=== PATIENT | female | born 2000 | race African-American/Black ===

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

== ENCOUNTER 2018-03-08 11:31 | Emergency (ER) | payer OTHER ==
[2018-03-08 12:44] LABS: KETONE, URINE AUTO RFX NEGATIVE (NEGATIVE); NITRITE, URINE AUTO RFX NEGATIVE (NEGATIVE); RBC, URINE AUTO RFX 2 /HPF (0-3); SPECIFIC GRAVITY UR AUTO RFX 1.013 (1.002-1.035); SQUAM EPITHELIAL CELL UR AURFX 1 /HPF (0-6); WBC, URINE AUTO RFX 2 /HPF (0-3)
[2018-03-08 12:48] LABS: CONTROL LINE UCG INT CTR LINE PRESENT; LEUKOCYTE ESTERASE UR AUTO RFX 1+ (NEGATIVE); URINE PREG TEST NEGATIVE (NEGATIVE)
[2018-03-08] MEDS: ONDANSETRON 4MG/2ML VIAL (J2405) IV (15:44)
[2018-03-08] MEDS: KETOROLAC 30 MG/ML VIAL (J1885) IV (15:44)
[2018-03-08 15:50] LABS: BASO % 0.5 % (0.0-1.0); EOS # 0.2 10^3/uL (0.0-0.50); HEMATOCRIT 43.8 % (36.0-47.0); IMMATURE GRANULOCYTE % 0.4 % (0-3.0); LYMPH # 2.4 10^3/uL (1.5-6.5); LYMPH % 27.8 % (24.0-44.0); MEAN CORPUSCULAR HEMOGLOBIN 30.3 pg (27.0-33.0); MEAN CORPUSCULAR HGB CONC 34.2 g/dl (32.0-36.5); MEAN CORPUSCULAR VOLUME 88.5 fl (80.0-96.0); MONO # 0.7 10^3/uL (0.0-0.8); MONO % 8.3 % (0.0-5.0); NEUTROPHILS # 5.2 10^3/uL (1.8-7.7); PLATELET COUNT, AUTOMATED 316 10^3/uL (150-450); RED BLOOD COUNT 4.95 10^6/uL (4.00-5.40); RED CELL DISTRIBUTION WIDTH 13.1 % (11.5-14.5); WHITE BLOOD COUNT 8.4 10^3/uL (4.0-10.0)
[2018-03-08 16:22] LABS: ALBUMIN 4.2 GM/DL (3.2-5.2); ALBUMIN/GLOBULIN RATIO 0.95 (1.00-1.93); ALKALINE PHOSPHATASE 91 U/L (45-117); ALT/SGPT 19 U/L (12-78); ANION GAP 9 MEQ/L (8-16); AST/SGOT 14 U/L (7-37); BILIRUBIN,TOTAL 0.6 MG/DL (0.2-1.0); BLOOD UREA NITROGEN 9 MG/DL (7-18); C REACTIVE PROTEIN QUANTITATIV 0.52 MG/DL (0.00-0.30); CALCIUM LEVEL 9.9 MG/DL (8.5-10.1); CARBON DIOXIDE LEVEL 26 MEQ/L (21-32); CHLORIDE LEVEL 104 MEQ/L (98-107); CREATININE FOR GFR 0.86 MG/DL (0.55-1.30); GLUCOSE, FASTING 77 MG/DL (70-100); POTASSIUM SERUM 3.9 MEQ/L (3.5-5.1); SODIUM LEVEL 139 MEQ/L (136-145); TOTAL PROTEIN 8.6 GM/DL (6.4-8.2)
== END 2018-03-08 17:42 | disposition home or self-care (01) ==
LOC: M ED 11:31
DX: R10.9 Unspecified abdominal pain (principal); Z87.42 Personal history of other diseases of the female genital tract; M19.90 Unspecified osteoarthritis, unspecified site; Z88.7 Allergy status to serum and vaccine
CPT/HCPCS: J2405

== ENCOUNTER → 2018-06-30 | Outpatient (CLI) | payer OTHER ==
[~2018-06-30] MED LIST changes: +KETO10TAB PO; +NAPR-50 PO; +VITA200016 PO; +ZOFR4TAB14 PO
--- NOTE | 2018-06-30 18:16 | REP ---
Clinical: Right knee pain. Technique: AP, lateral, bilateral oblique and sunrise views. Findings: The osseous structures and joint spaces are intact and normal. There is no evidence for acute fracture or dislocation. No joint effusion is appreciated. Surrounding soft tissues are unremarkable. No subcutaneous emphysema or radiodense foreign body. Impression: Normal examination. No acute fracture or dislocation. Electronically Signed by Rodney Kelley MD 06/30/2018 06:08 P
== END ==
LOC: M WUC 17:27
PROVIDERS: ATTEND Physician Assistant
DX: M22.2X1 Patellofemoral disorders, right knee (principal)

== ENCOUNTER → 2018-07-27 | Outpatient (CLI) | payer OTHER ==
[2018-07-27 10:47] LABS: BASO % 0.6 % (0.0-1.0); EOS # 0.1 10^3/uL (0.0-0.50); EOS % 1.8 % (0.0-3.0); HEMATOCRIT 41.6 % (36.0-47.0); HEMOGLOBIN 14.4 g/dl (12.0-15.5); LYMPH # 1.6 10^3/uL (1.5-6.5); LYMPH % 24.4 % (24.0-44.0); MEAN CORPUSCULAR HEMOGLOBIN 30.4 pg (27.0-33.0); MEAN CORPUSCULAR HGB CONC 34.6 g/dl (32.0-36.5); MEAN CORPUSCULAR VOLUME 87.8 fl (80.0-96.0); MONO # 0.8 10^3/uL (0.0-0.8); MONO % 11.4 % (0.0-5.0); NEUTROPHILS # 4.1 10^3/uL (1.8-7.7); NEUTROPHILS % 61.5 % (36.0-66.0); PLATELET COUNT, AUTOMATED 263 10^3/uL (150-450); RED BLOOD COUNT 4.74 10^6/uL (4.00-5.40); WHITE BLOOD COUNT 6.7 10^3/uL (4.0-10.0)
[2018-07-27 11:03] LABS: C REACTIVE PROTEIN QUANTITATIV < 0.30 MG/DL (0.00-0.30); RHEUMATOID FACTOR QUANT < 10.0 IU/ML (<15.0); URIC ACID 4.7 MG/DL (2.6-6.0)
[2018-07-27 11:41] LABS: ERYTHROCYTE SEDIMENTATION RATE 9 mm/hr (0-20)
[2018-07-29 00:07] LABS: ANTI DOUBLE STRAND-DNA AB <1 IU/mL (0-9); ANTINUCLEAR ANTIBODIES DIRECT Positive (Negative); Lyme Disease IgG/IgM Antibodie <0.91 ISR (0.00-0.90); Lyme Disease IgM Ab Quantitati <0.80 index (0.00-0.79); RNP ANTIBODIES <0.2 AI (0.0-0.9); SJOGREN'S ANTI SS-A <0.2 AI (0.0-0.9); SJOGREN'S ANTI SS-B 3.3 AI (0.0-0.9); SMITH ANTIBODIES <0.2 AI (0.0-0.9)
== END ==
LOC: M LAB 09:40
PROVIDERS: ATTEND Physician Assistant Surgical
DX: M25.561 Pain in right knee (principal)

== ENCOUNTER 2018-08-02 13:45 | Outpatient (RCR) | payer OTHER | END 2018-08-03 | LOC: M PT 13:45 | PROVIDERS: ATTEND Orthopaedic Surgery | DX: Z47.89 Encounter for other orthopedic aftercare (principal); M25.561 Pain in right knee ==

== ENCOUNTER → 2018-09-05 | Outpatient (REF) | payer OTHER ==
[~2018-09-05] MED LIST changes: +DIVA250T67
[2018-09-05 14:44] LABS: FREE T4 1.02 NG/DL (0.78-1.33); THYROID STIMULATING HORMONE 1.05 uIU/ML (0.463-3.98)
[2018-09-05 14:46] LABS: FOLATE 6.6 NG/ML
== END ==
LOC: M LABDRAW1 13:03
PROVIDERS: ATTEND Physician Assistant Surgical
DX: M22.41 Chondromalacia patellae, right knee (principal)

== ENCOUNTER → 2018-09-05 | Outpatient (REF) | payer OTHER ==
[2018-09-05 14:03] LABS: BASO % 0.4 % (0.0-1.0); EOS # 0.1 10^3/uL (0.0-0.50); EOS % 1.7 % (0.0-3.0); HEMATOCRIT 40.4 % (36.0-47.0); HEMOGLOBIN 14.1 g/dl (12.0-15.5); LYMPH % 26.7 % (24.0-44.0); MEAN CORPUSCULAR HEMOGLOBIN 30.5 pg (27.0-33.0); MEAN CORPUSCULAR HGB CONC 34.9 g/dl (32.0-36.5); MEAN CORPUSCULAR VOLUME 87.3 fl (80.0-96.0); MONO # 0.6 10^3/uL (0.0-0.8); MONO % 8.5 % (0.0-5.0); NEUTROPHILS # 4.6 10^3/uL (1.8-7.7); NEUTROPHILS % 62.3 % (36.0-66.0); PLATELET COUNT, AUTOMATED 276 10^3/uL (150-450); RED BLOOD COUNT 4.63 10^6/uL (4.00-5.40); WHITE BLOOD COUNT 7.4 10^3/uL (4.0-10.0)
== END ==
LOC: M LABDRAW1 13:04
PROVIDERS: ATTEND Psychiatry & Neurology Psychiatry
DX: Z51.81 Encounter for therapeutic drug level monitoring (principal)

== ENCOUNTER 2018-09-06 09:43 | Emergency (ER) | payer OTHER ==
[~2018-09-06] VITALS: Ht 162.6 cm; Wt 80.2 kg
[~2018-09-06 09:43] MED LIST changes: -DIVA250T67
[2018-09-06] MEDS ORDERED: DIVA250T67 (09:49)
--- NOTE | 2018-09-06 10:43 | REP ---
Right knee series: Five views. History: Right knee pain after fall. Comparison study: June 30, 2018. Findings: Five views right knee demonstrate normal bones, joints and soft tissues. No fracture, subluxation or joint effusion. Impression: Negative right knee radiographs. Electronically Signed by Yovany Almonte MD 09/06/2018 10:35 A
[2018-09-06 10:53] VITALS: BP 128/68
== END 2018-09-06 11:08 | disposition home or self-care (01) ==
LOC: M ED 09:43
DX: S80.01XA Contusion of right knee, initial encounter (principal); W18.39XA Other fall on same level, initial encounter; Y92.018 Other place in single-family (private) house as the place of occurrence of the external cause; Z88.7 Allergy status to serum and vaccine

== ENCOUNTER 2018-09-21 15:08 | Emergency (ER) | payer OTHER ==
[~2018-09-21] VITALS: Ht 162.6 cm; Wt 79.3 kg
[~2018-09-21 15:08] MED LIST changes: +DIVA250T67
[2018-09-21 15:09] VITALS: BP 139/87
[2018-09-21] MEDS ORDERED: ONDA4TAB6 (15:15)
[2018-09-21] MEDS ORDERED: OSEL75CA2 (15:15)
[2018-09-21] MEDS ORDERED: ONDANSETRON 4MG/2ML VIAL (J2405) IV ONE (17:00)
[2018-09-21] MEDS ORDERED: NS 1,000 ML IV ONE (17:00)
[2018-09-21] MEDS ORDERED: KETOROLAC 30 MG/ML VIAL (J1885) IV ONE (17:00)
[2018-09-21 17:44] LABS: BASO % 0.5 % (0.0-1.0); EOS % 0.5 % (0.0-3.0); HEMATOCRIT 42.4 % (36.0-47.0); HEMOGLOBIN 14.6 g/dl (12.0-15.5); LYMPH # 1.5 10^3/uL (1.5-6.5); LYMPH % 22.4 % (24.0-44.0); MEAN CORPUSCULAR HEMOGLOBIN 30.6 pg (27.0-33.0); MEAN CORPUSCULAR HGB CONC 34.4 g/dl (32.0-36.5); MEAN CORPUSCULAR VOLUME 88.9 fl (80.0-96.0); MONO # 0.7 10^3/uL (0.0-0.8); MONO % 11.1 % (0.0-5.0); NEUTROPHILS # 4.3 10^3/uL (1.8-7.7); NEUTROPHILS % 65.3 % (36.0-66.0); PLATELET COUNT, AUTOMATED 312 10^3/uL (150-450); RED BLOOD COUNT 4.77 10^6/uL (4.00-5.40); WHITE BLOOD COUNT 6.6 10^3/uL (4.0-10.0)
[2018-09-21 18:07] LABS: ALT/SGPT 19 U/L (12-78); BILIRUBIN,DIRECT 0.1 MG/DL (0.0-0.2); BILIRUBIN,TOTAL 0.4 MG/DL (0.2-1.0); BLOOD UREA NITROGEN 5 MG/DL (7-18); CARBON DIOXIDE LEVEL 27 MEQ/L (21-32); CHLORIDE LEVEL 105 MEQ/L (98-107); CREATININE FOR GFR 0.82 MG/DL (0.55-1.30); GLUCOSE, FASTING 81 MG/DL (70-100); LIPASE 101 U/L (73-393); POTASSIUM SERUM 3.7 MEQ/L (3.5-5.1); SODIUM LEVEL 138 MEQ/L (136-145); TOTAL PROTEIN 7.4 GM/DL (6.4-8.2)
[2018-09-21] MEDS ORDERED: ONDA4TAB6 PO (18:14)
== END 2018-09-21 19:55 | disposition home or self-care (01) ==
LOC: M ED 15:08
DX: B34.9 Viral infection, unspecified (principal); I10 Essential (primary) hypertension; Z82.49 Family history of ischemic heart disease and other diseases of the circulatory system; Z83.79 Family history of other diseases of the digestive system; Z84.1 Family history of disorders of kidney and ureter; Z87.42 Personal history of other diseases of the female genital tract
CPT/HCPCS: 80048; 80076; 81001; 81025; 83605; 83690; 85025; 96374; 96375; 99284; J1885; J2405

== ENCOUNTER 2018-11-01 16:59 | Emergency (ER) | payer OTHER ==
[~2018-11-01 16:59] MED LIST changes: -NAPR-50 PO; +NAPR-837 PO; +ONDA4TAB6; +ONDA4TAB6 PO; +OSEL75CA2
[2018-11-01] MEDS ORDERED: NS 1,000 ML IV ONE (17:15)
[2018-11-01] MEDS ORDERED: ONDANSETRON 4MG/2ML VIAL (J2405) IV ONE (17:15)
[2018-11-01 17:40] LABS: BASO % 0.4 % (0.0-1.0); EOS # 0.1 10^3/uL (0.0-0.50); EOS % 0.6 % (0.0-3.0); HEMATOCRIT 42.5 % (36.0-47.0); HEMOGLOBIN 14.7 g/dl (12.0-15.5); LYMPH % 20.6 % (24.0-44.0); MEAN CORPUSCULAR HEMOGLOBIN 30.9 pg (27.0-33.0); MEAN CORPUSCULAR HGB CONC 34.6 g/dl (32.0-36.5); MEAN CORPUSCULAR VOLUME 89.5 fl (80.0-96.0); MONO # 0.7 10^3/uL (0.0-0.8); MONO % 7.4 % (0.0-5.0); NEUTROPHILS # 6.7 10^3/uL (1.8-7.7); NEUTROPHILS % 70.7 % (36.0-66.0); PLATELET COUNT, AUTOMATED 294 10^3/uL (150-450); RED BLOOD COUNT 4.75 10^6/uL (4.00-5.40); WHITE BLOOD COUNT 9.5 10^3/uL (4.0-10.0)
[2018-11-01 18:05] LABS: ALBUMIN 4.4 GM/DL (3.2-5.2); ALT/SGPT 17 U/L (12-78); AMYLASE 46 U/L (25-115); BILIRUBIN,DIRECT 0.2 MG/DL (0.0-0.2); BILIRUBIN,TOTAL 0.9 MG/DL (0.2-1.0); BLOOD UREA NITROGEN 6 MG/DL (7-18); CALCIUM LEVEL 9.1 MG/DL (8.5-10.1); CARBON DIOXIDE LEVEL 27 MEQ/L (21-32); CHLORIDE LEVEL 107 MEQ/L (98-107); CREATININE FOR GFR 0.89 MG/DL (0.55-1.30); GLUCOSE, FASTING 87 MG/DL (70-100); LIPASE 98 U/L (73-393); POTASSIUM SERUM 3.7 MEQ/L (3.5-5.1); SODIUM LEVEL 139 MEQ/L (136-145); TOTAL PROTEIN 7.4 GM/DL (6.4-8.2)
[2018-11-01 18:11] LABS: HCG, SERUM QUALITATIVE NEGATIVE (NEGATIVE)
[2018-11-01] MEDS ORDERED: ISOVUE-370 76% 100ML VIAL (Q9967) As Ordered ONE (18:30)
--- NOTE | 2018-11-01 19:45 | REPVR ---
EXAM: CT Abdomen and Pelvis With Contrast EXAM DATE/TIME: 11/01/2018 6:44 PM CLINICAL HISTORY: 17 years old, female; Abdominal pain; Additional info: Rlq pain TECHNIQUE: Imaging protocol: Axial computed tomography images of the abdomen and pelvis with intravenous contrast. Coronal and sagittal reformatted images were created and reviewed. Radiation optimization: All CT scans at this facility use at least one of these dose optimization techniques: automated exposure control; mA and/or kV adjustment per patient size (includes targeted exams where dose is matched to clinical indication); or iterative reconstruction. Contrast material: ISO 370; Contrast volume: 100 ml; Contrast route: IV; COMPARISON: CT ABD PELVIS W/O CONTRAST 03/08/2018 3:18 PM FINDINGS: Lungs: No suspicious mass or airspace process in the visualized lung bases. ABDOMEN: Liver: Liver appears normal with no focal abnormality. Gallbladder and bile ducts: Gallbladder is present and shows no evidence of gallstone. Pancreas: Pancreas appears normal. No focal mass or peripancreatic inflammation. Spleen: Spleen appears homogeneous without focal mass. Adrenals: Adrenal glands are normal in appearance. Kidneys and ureters: Kidneys appear normal, with no stone, solid mass or hydronephrosis. Stomach and bowel: No evidence of small bowel obstruction. No evidence of acute diverticulitis. Appendix: Normal caliber appendix is identified, with no adjacent inflammation. PELVIS: Bladder: Bladder appears normal. Reproductive: Left ovarian cyst measuring 2 cm. ABDOMEN and PELVIS: Intraperitoneal space: No pneumoperitoneum. Trace free fluid is present in the pelvis. Bones/joints: Bony structures show no acute fracture or destructive process. Soft tissues: Unremarkable. Vasculature: Main portal and splenic veins enhance normally. No aortic aneurysm. Lymph nodes: No enlarged lymph nodes. IMPRESSION: 1. No acute surgical or inflammatory intra-abdominal or pelvic process. 2. Normal-appearing appendix Electronically signed by: Larry Ozuna On 11/01/2018 19:45:22 PM
[2018-11-01 20:15] VITALS: BP 109/63
[2018-11-01] MEDS ORDERED: ONDA4TAB6 PO (21:05)
--- NOTE | 2018-11-01 21:40 | ECGEPIP ---
Stationary ECG Study [facility] - ED Test Date: 2018-11-01 Pat Name: SHONDA DIAMOND Department: Room: - Gender: F Travel Pt: ct : 2000 Requested By: Amy Lara Order Number: [id number] Reading MD: Julian Mosher Measurements Intervals [place] Rate: 95 P: 60 MN: 153 QRS: 56 QRSD: 75 T: 41 QT: 343 QTc: 432 Interpretive Statements SINUS RHYTHM Electronically Signed On 11-01-2018 21:39:34 EDT by Julian Mosher
== END 2018-11-01 21:39 | disposition home or self-care (01) ==
LOC: EDBD 16:59 → M ED 16:59
DX: R55 Syncope and collapse (principal); R11.2 Nausea with vomiting, unspecified; I10 Essential (primary) hypertension; Z79.899 Other long term (current) drug therapy; Z88.7 Allergy status to serum and vaccine
CPT/HCPCS: 36415; 74177; 80048; 80076; 81001; 81025; 82150; 83605; 83690; 84703; 85025; 87040; 87086; 93005; 93041; 94760; 96361; 96374; 99285; J2405; Q9967

== ENCOUNTER → 2019-01-31 | Outpatient (CLI) | payer OTHER ==
[2019-01-31 13:05] LABS: COMPLEMENT C3 148 MG/DL (90-180); COMPLEMENT C4 38 MG/DL (10-40)
[2019-01-31 13:35] LABS: TOTAL PROTEIN,RANDOM URINE 14.2 MG/DL (0.0-12.0)
[2019-02-02 09:06] LABS: ANA (HEP2) Negative (.); BETA-2 GLYCOPROTEIN I ABY IGA <9 (0-25); BETA-2 GLYCOPROTEIN I ABY IGG <9 (0-20); BETA-2 GLYCOPROTEIN I ABY IGM <9 (0-32); CARDIOLIPIN IGA ANTIBODY <9 APL U/mL (0-11); CARDIOLIPIN IGG ANTIBODY <9 GPL U/mL (0-14); CARDIOLIPIN IGM ANTIBODY <9 MPL U/mL (0-12); SSA SJOGRENS A <0.2 AI (0.0-0.9); SSB SJOGRENS B 2.9 AI (0.0-0.9)
[2019-02-06 10:29] LABS: DRVV SCREEN 42.2 SEC
[2019-02-06 10:31] LABS: PTT LUPUS TYPE ANTICOAG SCREEN 1.1 (0-1.2)
== END ==
LOC: M LAB 11:40
PROVIDERS: ATTEND Internal Medicine Rheumatology
DX: R76.8 Other specified abnormal immunological findings in serum (principal)

== ENCOUNTER → 2019-01-31 | Outpatient (CLI) | payer OTHER ==
[2019-01-31 12:48] LABS: BASO % 0.2 % (0.0-1.0); EOS # 0.1 10^3/uL (0.0-0.50); EOS % 0.8 % (0.0-3.0); HEMATOCRIT 38.5 % (36.0-47.0); HEMOGLOBIN 13.5 g/dl (12.0-15.5); LYMPH # 1.5 10^3/uL (1.5-6.5); MEAN CORPUSCULAR HEMOGLOBIN 30.7 pg (27.0-33.0); MEAN CORPUSCULAR HGB CONC 35.1 g/dl (32.0-36.5); MEAN CORPUSCULAR VOLUME 87.5 fl (80.0-96.0); MONO # 0.7 10^3/uL (0.0-0.8); MONO % 8.2 % (0.0-5.0); NEUTROPHILS # 6.5 10^3/uL (1.8-7.7); NEUTROPHILS % 73.6 % (36.0-66.0); PLATELET COUNT, AUTOMATED 292 10^3/uL (150-450); WHITE BLOOD COUNT 8.8 10^3/uL (4.0-10.0)
[2019-01-31 13:56] LABS: HEPATITIS C VIRUS ABY INDEX 0.1 INDEX (<0.8); HIV 1&2 SCREEN CENTAUR NEGATIVE (NEGATIVE); RUBELLA IgG QUALITATIVE IMMUNE (IMMUNE)
[2019-01-31 16:04] LABS: CHLAMYDIA DNA AMPLIFICATION NEGATIVE (NEGATIVE); GC DNA AMPLIFICATION NEGATIVE (NEGATIVE)
== END ==
LOC: M LAB 11:48
PROVIDERS: ATTEND Advanced Practice Midwife
DX: Z34.81 Encounter for supervision of other normal pregnancy, first trimester (principal); Z3A.08 8 weeks gestation of pregnancy

== ENCOUNTER 2019-03-01 11:37 | Emergency (ER) | payer OTHER ==
[~2019-03-01] VITALS: Ht 162.6 cm; Wt 73.2 kg
[2019-03-01] MEDS ORDERED: prenatal (11:43)
[2019-03-01] MEDS ORDERED: FOLI1TAB11 (11:43)
[2019-03-01] MEDS ORDERED: LEVE500T5 (11:43)
[2019-03-01 12:32] LABS: BASO % 0.2 % (0.0-1.0); EOS # 0.1 10^3/uL (0.0-0.50); EOS % 0.6 % (0.0-3.0); HEMATOCRIT 38.2 % (36.0-47.0); HEMOGLOBIN 13.6 g/dl (12.0-15.5); LYMPH # 1.7 10^3/uL (1.5-6.5); LYMPH % 20.2 % (24.0-44.0); MEAN CORPUSCULAR HEMOGLOBIN 31.9 pg (27.0-33.0); MEAN CORPUSCULAR HGB CONC 35.6 g/dl (32.0-36.5); MEAN CORPUSCULAR VOLUME 89.7 fl (80.0-96.0); MONO # 0.6 10^3/uL (0.0-0.8); MONO % 6.6 % (0.0-5.0); NEUTROPHILS # 6.2 10^3/uL (1.8-7.7); NEUTROPHILS % 72.1 % (36.0-66.0); PLATELET COUNT, AUTOMATED 253 10^3/uL (150-450); RED BLOOD COUNT 4.26 10^6/uL (4.00-5.40); WHITE BLOOD COUNT 8.6 10^3/uL (4.0-10.0)
[2019-03-01 13:01] LABS: ALBUMIN 3.5 GM/DL (3.2-5.2); BILIRUBIN,DIRECT 0.1 MG/DL (0.0-0.2); BILIRUBIN,TOTAL 0.5 MG/DL (0.2-1.0); BLOOD UREA NITROGEN 6 MG/DL (7-18); CALCIUM LEVEL 9.7 MG/DL (8.5-10.1); CARBON DIOXIDE LEVEL 25 MEQ/L (21-32); CHLORIDE LEVEL 106 MEQ/L (98-107); CREATININE FOR GFR 0.64 MG/DL (0.55-1.30); GLUCOSE, FASTING 79 MG/DL (70-100); LIPASE 97 U/L (73-393); POTASSIUM SERUM 3.9 MEQ/L (3.5-5.1); SODIUM LEVEL 137 MEQ/L (136-145); TOTAL PROTEIN 7.1 GM/DL (6.4-8.2)
--- NOTE | 2019-03-01 13:39 | REP ---
Obstetric ultrasound, stat request for right lower quadrant pain: There is a single intrauterine gestation in a breech presentation. There is movement. heart rate is 150 beats per minute. The placenta is anterior and extends into the lower uterine segment. There is no evidence of abruptio. However, the lower uterine segment cannot be optimally visualized on the study today the examination is insensitive for placenta previa. I would recommend attention to the lower uterine segment occluding the inferior margin of the placenta on follow up studies to evaluate for placental migration. The amniotic fluid volume subjectively is normal. The right ovary is optimally visualized. There is a right ovarian follicle measuring 1.6 cm, possibly a corpus luteum. There is vascular flow in the right ovary with the Doppler resistive index of the parenchymal arteries measuring 0.49. The left ovary is not visualized. Gestational age of based on today's ultrasound is 15 weeks 5 days/BAL 08/18/2019. Gestational age by LMP is 14 weeks 6 days/BAL 08/24/2019. Impression: There is a right ovarian cyst measuring 1.6 cm, likely a corpus luteum. There is vascular flow in the right ovary. The left ovary cannot be visualized. The placenta is anterior and extends into the lower uterine segment. There is no placental abruptio. The lower uterine segment is suboptimally demonstrated and the inferior margin of the placenta cannot be identified in relation to the internal cervical os. Attention to the inferior marginal placental on follow up studies is recommended to evaluate for placental migration. Electronically Signed by Robin Patterson MD 03/01/2019 01:30 P
[2019-03-01] MEDS ORDERED: ACETAMINOPHEN TAB 650MG DOSE (2X325MG) PO ONE (13:45)
[2019-03-01 13:57] LABS: ALT/SGPT 14 U/L (12-78)
[2019-03-01 15:59] VITALS: BP 117/69
--- NOTE | 2019-03-01 16:49 | REP ---
Lower quadrant abdominal ultrasound, stat request for appendicitis: The appendix cannot be visualized. There is pain with transducer pressure. There is no rebound tenderness. There is no mesenteric fat inflammation. No mesenteric lymph nodes are identified. No free fluid is identified. Peristalsing small bowel is identified. The cecum is visualized. There is a right ovarian 1.5 cm follicle. The right ovary is normal size measuring 4.6 x 1.7 x 3.8 cm. There is vascular flow in the right ovary. The Doppler resistive index of the parenchymal arteries is 0.40 per Impression: The appendix could not be visualized. There is no mesenteric fat inflammation. No mesenteric lymph nodes or free fluid are identified. There is a right ovarian follicle as described. There is vascular flow in the right ovary. Electronically Signed by Robin Patterson MD 03/01/2019 04:42 P
== END 2019-03-01 16:00 | disposition home or self-care (01) ==
LOC: M ED 11:37
DX: O34.82 Maternal care for other abnormalities of pelvic organs, second trimester (principal); N83.01 Follicular cyst of right ovary; O99.352 Diseases of the nervous system complicating pregnancy, second trimester; R56.9 Unspecified convulsions; Z3A.14 14 weeks gestation of pregnancy; Z88.7 Allergy status to serum and vaccine; Z79.899 Other long term (current) drug therapy

== ENCOUNTER → 2019-03-27 | Outpatient (CLI) | payer OTHER ==
[~2019-03-27] MED LIST changes: +FOLI1TAB11; +LEVE500T5; +prenatal
--- NOTE | 2019-03-28 06:40 | REP ---
Clinical: Anatomical evaluation. Comparison: None . Findings: Examination demonstrates a single live intrauterine in breech presentation. motion is identified by technologist. Placenta is noted anterior and grade zero without evidence for placenta previa or abruption. Amniotic fluid volume is normal. Cervix measures 3.5 cm in length and appears closed. No evidence for nuchal cord. Gestational age by LMP 18 weeks 3 days with BAL 08/25/2019 . Gestational age by current measurements 18 weeks 3 days with BAL 08/25/2019 . FHR equals 144 beats per minute. BPD 3.9 cm 17 weeks 6 days HC 15.0 cm 18 weeks 1 day AC 13.5 cm 19 weeks 0 days FL 2.7 cm 18 weeks 1 day HL 2.8 cm 19 weeks 0 days HC/AC ratio 1.12 Estimated weight to 242 grams ( 49th percentile). Anatomical assessment demonstrates normal structures including cranium, choroid plexus, cavum, cerebellum/posterior fossa, nose/lips, lungs, four-chamber heart/ventricular outflow tracts, diaphragm, stomach, cord insertion/three-vessel cord, kidneys/bladder, and extremities. Impression: 1. Single live intrauterine in breech presentation demonstrating appropriate interval growth. 2. Limited evaluation of the facial profile and spine. Remainder of the anatomical assessment is complete and normal. Electronically Signed by Rodney Kelley MD 03/28/2019 06:32 A
== END ==
LOC: M RAD 12:10
PROVIDERS: ATTEND Advanced Practice Midwife
DX: Z34.82 Encounter for supervision of other normal pregnancy, second trimester (principal)

== ENCOUNTER → 2019-04-13 | Outpatient (CLI) | payer OTHER ==
--- NOTE | 2019-04-13 16:05 | REP ---
Obstetric ultrasound for follow-up of anatomy: On the comparison study of 03/27/2019. The facial profile and spine were suboptimally demonstrated. Additionally, on the prior study of 03/01/2019. The inferior margin of the placenta was suboptimally demonstrated and could not be identified relation to the internal cervical os. On the study today the facial profile is optimally demonstrated and is unremarkable. The spine is again suboptimally demonstrated. An additional followup study dedicated to this structure might be considered. The lower extremities are suboptimally demonstrated today but were optimally demonstrated previously and were unremarkable. The remainder of the anatomy is unremarkable as previously. The placenta is anterior and extends into the uterine fundus. The inferior margin of the placenta and no longer extends into the lower uterine segment. There is a single intrauterine gestation in a breech presentation. There is movement and cardiac activity. The heart rate is 150 beats per minute. The placenta is anterior without previa or abruptio and is grade zero. The amniotic fluid volume subjectively is normal. The cervix measures 3.8 cm length. Gestational age by today's ultrasound is 20 weeks 1 day/BAL 08/30/2019. Gestational age by the first ultrasound 21-week 6 days/08/18/2019. Gestational age by LMP 20-week 6 days/08/25/2019. weight is 388 grams/0 pounds, 13 ounces. This is the 40th percentile for 20 weeks 6 days. Electronically Signed by Robin Patterson MD 04/13/2019 03:56 P
== END ==
LOC: M RAD 13:35
PROVIDERS: ATTEND Advanced Practice Midwife
DX: Z34.82 Encounter for supervision of other normal pregnancy, second trimester (principal); Z3A.20 20 weeks gestation of pregnancy

== ENCOUNTER → 2019-05-10 | Outpatient (CLI) | payer OTHER ==
--- NOTE | 2019-05-10 20:31 | REP ---
Clinical: Anatomical evaluation. Comparison: 04/13/2019 . Findings: Examination demonstrates a single live intrauterine in breech presentation. motion is identified by technologist. Placenta is noted anterior and grade I without evidence for placenta previa or abruption. Amniotic fluid volume is normal. Cervix measures 4.5 cm of in length and appears closed. No evidence for nuchal cord. Gestational age by LMP 24 weeks 5 days with BAL 08/25/2019 . Gestational age by current measurements 24 weeks 3 days with BAL 08/27/2019 . FHR equals 149 beats per minute. Estimated weight 714 grams ( 41st percentile). Anatomical assessment demonstrates normal structures including cranium, choroid plexus, cavum, cerebellum/posterior fossa, facial features, lungs, diaphragm, stomach, cord insertion/three-vessel cord, kidneys/bladder, spine, and upper extremities. Impression: Single live intrauterine in breech presentation demonstrating appropriate interval growth. 2. In conjunction with prior examination anatomical assessment is complete and normal. Electronically Signed by Rodney Kelley MD 05/10/2019 08:22 P
== END ==
LOC: M RAD 09:44
PROVIDERS: ATTEND Advanced Practice Midwife
DX: O99.612 Diseases of the digestive system complicating pregnancy, second trimester (principal); Z3A.24 24 weeks gestation of pregnancy

== ENCOUNTER → 2019-06-07 | Outpatient (CLI) | payer OTHER ==
[2019-06-07 10:53] LABS: HEMOGLOBIN 11.9 g/dl (12.0-15.5); MEAN CORPUSCULAR HEMOGLOBIN 29.8 pg (27.0-33.0); MEAN CORPUSCULAR VOLUME 87.7 fl (80.0-96.0); PLATELET COUNT, AUTOMATED 266 10^3/uL (150-450); RED BLOOD COUNT 3.99 10^6/uL (4.00-5.40); WHITE BLOOD COUNT 8.5 10^3/uL (4.0-10.0)
== END ==
LOC: M LAB 09:11
PROVIDERS: ATTEND Advanced Practice Midwife
DX: O99.612 Diseases of the digestive system complicating pregnancy, second trimester (principal); Z3A.00 Weeks of gestation of pregnancy not specified

== ENCOUNTER → 2019-07-09 | Outpatient (CLI) | payer OTHER ==
[~2019-07-09] VITALS: Ht 162.6 cm; Wt 86.4 kg
[~2019-07-09] MED LIST changes: +OMEP-218 PO; +OMEPRAZOLE 20 MG CAP PO ONE; +ONDA4TAB5 PO; +ONDANSETRON 4 MG TAB (S0181) PO SCH
[2019-07-09 07:49] VITALS: BP 121/74
--- NOTE | 2019-07-09 08:24 | IPNPDOC ---
Text Note Date of Service The patient was seen on 07/09/19. NOTE Subjective: Patient is a 18-year-old female who is a at 33.1 weeks gestation with an BAL of 08/26/19 based off of her LMP and consistent with her fist trimester ultrasound. Her has been complicated by a history of seizures, which she is taking Keppra for to manage. She presents with complaints of epigastric pain, nausea and vomiting. She states that the last time she vo mited was yesterday. She does report reflux, which she does not take anything for. She was seen in the office Tuesday with same complaints and given labs and sono for gallbladder. She did not have it done. Done today in L&D. She reports nausea today that has resolved with Zofran. She reports epigastric pain that happens occasionally and when she gets it it shoots down into her cervix. She denies vaginal bleeding, contractions or leaking of fluid. Reports active movement. Objective: VS, labs and sono: see below. FHR 130, moderate variability, positive accelerations, no decelerations. Contractions: none. A+O x3. Respiratory rate is regular with no use of accessory muscles. Abdomen: gravid and to tenderness with palpation. Extremities: no clonus and no edema. Able to keep fluids and popsicles down without vomiting. Assessment: IUP at 33.1 weeks gestation, nausea, heartburn, epigastric pain, Category I FHR tracing. Plan: All labs ans ultrasound reviewed with patient and . Script sent to pharmacy for Zofran and omeprazole. Encouraged patient to get Pedialyte to sip and to increase fluids. She is to follow-up with her routine OB appointment on 07/20/19. Reviewed access to care, kick count, labor sings, and danger signs to report. Patient discharged to home with . VS,Fishbone, I+O VS, Fishbone, I+O Vital Signs Date Time Temp Pulse Resp B/P (MAP) Pulse Ox O2 Delivery O2 Flow Rate FiO2 07/09/19 07:54 98.9 18 07/09/19 07:49 104 121/74 (90) cc: [~ rep ct ivnm] Service Date&Time: 07/09/19 0832 EXAMINATION REQUESTED: GALLBLADDER US REASON FOR PATIENT VISIT: VOMITING AND VAGINAL PAIN REASON FOR EXAM/COMMENT: epigastric pain RIGHT UPPER QUADRANT SONOGRAPHY: HISTORY: Nausea, vomiting, abdominal pain. 33 weeks gestation. FINDINGS: Scanning through the right upper quadrant of the abdomen demonstrates a normal-sized, thin-walled gallbladder without evidence of stone or polyp. Common bile duct is normal measuring 0.3 cm in greatest diameter. No focal liver lesion is seen. Pancreas is obscured by abdominal gas. There is no evidence of ascites. The right kidney measures 10.4 x 5.5 x 5.2 cm. There is mild hydronephrosis affecting the right kidney. heart rate is recorded at 144 beats per minute during examination. Cephalic fetus. IMPRESSION: Mild separation of central renal sinus echoes consistent with mild hydronephrosis of . Otherwise negative right upper quadrant sonography. Item Value Date Time Sodium Level 139 MEQ/L 07/09/19 0829 Potassium Level 4.0 MEQ/L 07/09/19 0829 Chloride Level 109 MEQ/L H 07/09/19 0829 Carbon Dioxide Level 20 MEQ/L L 07/09/19 0829 Anion Gap 10 MEQ/L 07/09/19 0829 Blood Urea Nitrogen 6 MG/DL L 07/09/19 0829 Creatinine 0.65 MG/DL 07/09/19 0829 Fasting Glucose 75 MG/DL 07/09/19 0829 Calcium Level 8.8 MG/DL 07/09/19 0829 Total Bilirubin 0.3 MG/DL 07/09/19 0829 Alanine Aminotransferase (ALT/SGPT) 10 U/L L 07/09/19 0829 Aspartate Amino Transf (AST/SGOT) 12 U/L 07/09/19 0829 Alkaline Phosphatase 92 U/L 07/09/19 0829 Total Protein 6.6 GM/DL 07/09/19 0829 Albumin 2.7 GM/DL L 07/09/19 0829 Albumin/Globulin Ratio 0.69 L 07/09/19 0829 Amylase Level 70 U/L 07/09/19 0829 Lipase 114 U/L 07/09/19 0829 IVIS BARTH CNM Jul 09, 2019 08:24
[2019-07-09 09:07] LABS: ALBUMIN 2.7 GM/DL (3.2-5.2); ALT/SGPT 10 U/L (12-78); AMYLASE 70 U/L (25-115); BILIRUBIN,TOTAL 0.3 MG/DL (0.2-1.0); BLOOD UREA NITROGEN 6 MG/DL (7-18); CALCIUM LEVEL 8.8 MG/DL (8.5-10.1); CARBON DIOXIDE LEVEL 20 MEQ/L (21-32); CHLORIDE LEVEL 109 MEQ/L (98-107); CREATININE FOR GFR 0.65 MG/DL (0.55-1.30); GLUCOSE, FASTING 75 MG/DL (70-100); LIPASE 114 U/L (73-393); SODIUM LEVEL 139 MEQ/L (136-145); TOTAL PROTEIN 6.6 GM/DL (6.4-8.2)
--- NOTE | 2019-07-09 09:28 | REP ---
RIGHT UPPER QUADRANT SONOGRAPHY: HISTORY: Nausea, vomiting, abdominal pain. 33 weeks gestation. FINDINGS: Scanning through the right upper quadrant of the abdomen demonstrates a normal-sized, thin-walled gallbladder without evidence of stone or polyp. Common bile duct is normal measuring 0.3 cm in greatest diameter. No focal liver lesion is seen. Pancreas is obscured by abdominal gas. There is no evidence of ascites. The right kidney measures 10.4 x 5.5 x 5.2 cm. There is mild hydronephrosis affecting the right kidney. heart rate is recorded at 144 beats per minute during examination. Cephalic fetus. IMPRESSION: Mild separation of central renal sinus echoes consistent with mild hydronephrosis of . Otherwise negative right upper quadrant sonography. Electronically Signed by Yovany Almonte MD 07/09/2019 11:03 A
== END ==
LOC: M LDO 06:44 → EDSTATUS 07-11 08:01
PROVIDERS: ATTEND Obstetrics & Gynecology
DX: O99.353 Diseases of the nervous system complicating pregnancy, third trimester (principal); G40.909 Epilepsy, unspecified, not intractable, without status epilepticus; Z3A.33 33 weeks gestation of pregnancy; O99.830 Other infection carrier state complicating pregnancy; N13.30 Unspecified hydronephrosis; Z88.7 Allergy status to serum and vaccine; Z79.899 Other long term (current) drug therapy

== ENCOUNTER → 2019-08-03 | Outpatient (REF) | payer OTHER ==
[~2019-08-03] MED LIST changes: -OMEPRAZOLE 20 MG CAP PO ONE; +ONDA-83 PO; -ONDA4TAB5 PO; -ONDANSETRON 4 MG TAB (S0181) PO SCH
== END ==
LOC: M SFHCWAGY 16:50
PROVIDERS: ATTEND Advanced Practice Midwife
DX: Z36.85 Encounter for antenatal screening for Streptococcus B (principal); O99.353 Diseases of the nervous system complicating pregnancy, third trimester

== ENCOUNTER → 2019-08-07 | Outpatient (CLI) | payer OTHER | LOC: M PLALAB 15:56 | PROVIDERS: ATTEND Advanced Practice Midwife | DX: O99.353 Diseases of the nervous system complicating pregnancy, third trimester (principal) ==

== ENCOUNTER → 2019-08-09 | Outpatient (CLI) | payer OTHER ==
--- NOTE | 2019-08-09 20:35 | REP ---
Clinical: Growth evaluation. Comparison: 05/10/2019 . Findings: Examination demonstrates a single live intrauterine in cephalic presentation. motion is identified by technologist. Placenta is noted anterior and grade I I without evidence for placenta previa or abruption. Amniotic fluid volume is lower limits of normal and borderline oligohydramnios. Cervix appears closed. No evidence for nuchal cord. Gestational age by LMP 37 weeks 5 days with BAL 08/25/2019 . Gestational age by current measurements 35 week 6 days with BAL 09/07/2019 . FHR equals 153 beats per minute. BPD 8.8 cm 35 weeks 3 day HC 31.6 cm 35 weeks 3 day AC 32.8 cm 36 weeks 5 days FL 7.0 cm 35 weeks 5 days HC/AC ratio 0.96 Estimated weight 2871 grams ( 32nd percentile). Amniotic fluid index: 6.2 cm Umbilical cord SD ratio: 2.12 (1.60 - 2.60) Impression: 1. Single live advanced gestation in cephalic presentation demonstrating appropriate interval growth. 2. Amniotic fluid volume suggests borderline oligohydramnios (JIGAR = 6.2) Electronically Signed by Rodney Kelley MD 08/09/2019 08:26 P
== END ==
LOC: M RAD 08:41
PROVIDERS: ATTEND Advanced Practice Midwife
DX: O99.353 Diseases of the nervous system complicating pregnancy, third trimester (principal); Z3A.35 35 weeks gestation of pregnancy

== ENCOUNTER 2019-08-20 20:46 | Inpatient (IN) | payer OTHER ==
[~2019-08-20] VITALS: Ht 162.6 cm; Wt 91.0 kg
[2019-08-20 21:02] VITALS: BP 132/83
[2019-08-20 21:34] LABS: HEMATOCRIT 33.9 % (36.0-47.0); HEMOGLOBIN 11.3 g/dl (12.0-15.5); MEAN CORPUSCULAR HEMOGLOBIN 27.9 pg (27.0-33.0); MEAN CORPUSCULAR HGB CONC 33.3 g/dl (32.0-36.5); MEAN CORPUSCULAR VOLUME 83.7 fl (80.0-96.0); PLATELET COUNT, AUTOMATED 246 10^3/uL (150-450); RED BLOOD COUNT 4.05 10^6/uL (4.00-5.40); WHITE BLOOD COUNT 8.3 10^3/uL (4.0-10.0)
[2019-08-20 22:05] VITALS: BP 120/71
[2019-08-20 23:24] VITALS: BP 117/63
[2019-08-21] VITALS (56 sets, daily range): BP systolic 105–160; BP diastolic 54–88
[2019-08-21] MEDS ORDERED: PENICILLIN G POTASSIUM IV 5 MU in D5W MINI-BAG PLUS 100 ML IV STA (00:02)
[2019-08-21] MEDS ORDERED: LACTATED RINGER'S 1000 ML IV STA (00:02)
[2019-08-21] MEDS: miSOPROStol 50 MCG 1/2 TAB (S0191) PO SCH ×5 (00:18→15:50)
--- NOTE | 2019-08-21 01:18 | HPEPDOC ---
Obstetrical History & Physical General Date of Admission Aug 20, 2019 at 20:46 Primary Care Physician: IVIS BARTH CNM History of Present Illness Patient is a 18-year-old female who is a at 39.1 weeks gestation with an BAL of 08/26/19 based off of her LMP and consistent with her first trimester u ltrasound. She initiated care in her first trimester with [facility]. Her has been complicated by her seizure disorder, which has been managed well with Keppra and boarderline oligohydramnios. Her last sono showed her JIGAR to be 6.2 cm. She presents to L&D for IOL due to low fluid levels. She reports active movement. She denies contractions, leaking of fluid or vaginal bleeding. Chief Complaint: Induction of labor Information Provided By: Patient Age: 18 : 2 Term: 1 Pre-term: 0 Abortions: 0 Livin Care Care: Good Care Dating Final EDC: Aug 26, 2019 Final EDC by: LMP LMP: November 19, 2018 EGA at Admission: 39.1 Antepartum Course Diagnos(e)s boarderline oligohydramnios seizure disorder-taking Keppra Height (inches): 64 Pre- weight (lbs.): 159 Admission Weight (lbs.): 194 Change in Weight (lbs.): 35 Past Medical History Past Obstetrical History : Past Obstetrical History: Primgravida Gestation: 41.1 Type of Delivery: Spontaneous Vaginal Del. 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 Last seizure was November 2018; Switched from Lamictal to Keppra. Surgical History: Denies/None Family History Significant Family History: Asthma, Diabetes, Heart disease, Seizures Social History Marital Status: Family situation: Spouse/partner home * Smoker: non-smoker Alcohol: Denies Drugs: denies Abuse Violence Screening Have you been hit/kicked/slapp: No Have you been sexually assault: No Allergies Coded Allergies: meningococcal vaccine A,C,Y and W-1 (Verified Allergy, Intermediate, localized hive, 08/15/19) Medications Miscellaneous Medications Folic Acid (Folic Acid) 1 Mg Tablet levETIRAcetam (levETIRAcetam) 500 Mg Tablet Physical Examination Physical Examination GENERAL: Alert and oriented times three. BREAST: . ABDOMEN: Gravid and non-tender to touch. FETUS: Is vertex (VTX) by sterile vaginal examination (SVE), fetus is vertex (VTX) by Rambo. HEART RATE: Regular rate and rhythm. LUNGS: Clear to auscultation (CTA). EXTREMITIES: No edema. No clonus. Deep tendon reflexes (DTRs) + 2. Vital Signs/I&O Vital Signs Date Time Temp Pulse Resp B/P (MAP) Pulse Ox O2 Delivery O2 Flow Rate FiO2 08/20/19 23:24 97 117/63 (81) 08/20/19 21:02 97.9 Laboratory Data 24H LABS Laboratory Tests 2 08/20/19 20:55: Serology Scanned Report Hepatitis B Testing 08/20/19 21:27: Nucleated Red Blood Cells % (auto) 0.0 CBC/BMP Laboratory Tests 08/20/19 21:27 Urine Culture: No Growth Pertinent Laboratoy Data Blood Type: A+ RBC Antibody Screen: Negative HIV: Negative Hepatitis B: Negative Hepatitis C: Negative Rapid Plasma Reagin: Nonreactive Rubella: Immune Chlamydia/Gonorrhea: Negative Group B Streptococcus: Negative Quad Screen Test: Declined Glucose Tolerance Test: 90 Anatomy Ultrasound Ultrasound Date: Aug 09, 2019 Placenta Location: Anterior Normal Anatomy: Yes Placenta Previa: No Estimated Weight (grams): 2871 Vaginal Examination Dilation: 2cm Effacement: other (thick) Station: -2 Cervical Consistency: Soft Cervical Position: Posterior Presentation: Cephalic presentation Position: Vertex (occiput) Assessment Heart Rate (FHR): 130 Variability: Moderate Accelerations: Positive Decelerations: None Tocometer Contractions: No Assessment/Plan Assessment IUP at 39.1 weeks gestation Category I FHR tracing GBS positive. Boarderline oligohydramnios with last JIGAR with 6.2 cm of fluid. Plan Admit and orient. Pick Up And Delivery Driver and consent. Diet: regular. Will change to clears once IV Pitocin is started. Group B Streptococcus (GBS) positive. Start antibiotic prophylaxis now. Labs and intravenous (IV) per unit protocol. Counseled on Cytotec and IV Pitocin for induction of labor (IOL). Lactated Ringers (LR): Bolus 800 mL prior to epidural. Anticipate cervical ripening. C-S as appropriate. IVIS BARTH CNM Aug 21, 2019 01:18
[2019-08-21] MEDS: PENICILLIN G POTASSIUM IV 2.5 MU in IV 1 EA IV SCH ×4 (04:26→16:32)
[2019-08-21] MEDS ORDERED: FOLIC ACID 1 MG TAB PO SCH (09:00)
[2019-08-21] MEDS ORDERED: OXYTOCIN DRIP 30 UNITS in IV 1 EA IV SCH ×2 (09:15→20:14)
[2019-08-21] MEDS ORDERED: levETIRAcetam 250MG TABLET (KEPPRA) PO SCH (10:00)
[2019-08-21] MEDS ORDERED: FENTANYL 2MCG/ML ROPIVACAINE 0.2% IN 0.9% NACL 100ML IVBAG As Ordered ONE (14:20)
[2019-08-21] MEDS ORDERED: REFRIGERATOR IV KEYS XX PRN (15:30)
[2019-08-21] MEDS ORDERED: ONDANSETRON 4MG/2ML VIAL (J2405) IV PRN ×2 (15:30→20:15)
[2019-08-21] MEDS ORDERED: EPIDURAL COMMENT XX SCH (15:30)
[2019-08-21] MEDS ORDERED: FENTANYL/ROPIVACAINE/NACL BAG 100 ML EPIDURAL SCH (15:30)
[2019-08-21] MEDS ORDERED: NALOXONE INJ 0.4 MG/1 ML VIAL (J2310) IV PRN (15:30)
[2019-08-21] MEDS ORDERED: LACTATED RINGER'S 1000 ML IV PRN (15:30)
[2019-08-21] MEDS ORDERED: EPIDURAL/PCA KEYS XX PRN (15:30)
[2019-08-21] MEDS ORDERED: diphenhydrAMINE INJ 50MG/ML VIAL (J1200) IV PRN (15:30)
[2019-08-21] MEDS ORDERED: ePHEDrine SULFATE 25 MG/5 ML(5MG/ML) SYRINGE IV PRN (15:30)
[2019-08-21] MEDS ORDERED: LR 1,000 ML IV SCH ×2 (16:00→20:14)
[2019-08-21] MEDS ORDERED: ACETAMINOPHEN 500 MG TAB PO PRN (20:15)
[2019-08-21] MEDS ORDERED: ACETAMINOPHEN TAB 650MG DOSE (2X325MG) PO PRN (20:15)
[2019-08-21] MEDS ORDERED: RHOGAM 300 MCG (1500 IU) INJ (J2790) IM SCH (20:15)
[2019-08-21] MEDS ORDERED: MEASLES,MUMPS,RUBELLA VACCINE INJ (MMR-II) (90707) SC SCH (20:15)
[2019-08-21] MEDS ORDERED: METHYLERGONOVINE MALEATE 0.2 MG/ML VIAL (J2210) IM PRN (20:15)
[2019-08-21] MEDS ORDERED: DIBUCAINE 1% OINTMENT 30GM TOP PRN (20:15)
[2019-08-21] MEDS ORDERED: PROMETHAZINE 25 MG TAB PO PRN (20:15)
[2019-08-21] MEDS ORDERED: DOCUSATE SODIUM 100 MG CAP PO PRN (20:15)
[2019-08-21] MEDS ORDERED: IBUPROFEN 600 MG TAB PO PRN (20:15)
[2019-08-21] MEDS: levETIRAcetam 250MG TABLET (KEPPRA) PO SCH (21:00)
[2019-08-21] MEDS: IBUPROFEN 800 MG TAB PO PRN (22:05)
[2019-08-22 06:00] VITALS: BP 134/80
[2019-08-22] MEDS: IBUPROFEN 800 MG TAB PO PRN ×2 (07:41→21:39)
[2019-08-22] MEDS: FOLIC ACID 1 MG TAB PO SCH (07:42)
[2019-08-22] MEDS: PRENATAL VITAMINS CHEWABLE TABLET PO SCH (07:42)
[2019-08-22] MEDS: levETIRAcetam 250MG TABLET (KEPPRA) PO SCH ×2 (07:42→21:39)
[2019-08-22 18:02] VITALS: BP 127/79
[2019-08-23 06:00] VITALS: BP 127/73
[2019-08-23] MEDS: IBUPROFEN 800 MG TAB PO PRN (08:07)
[2019-08-23] MEDS: PRENATAL VITAMINS CHEWABLE TABLET PO SCH (09:00)
[2019-08-23] MEDS: levETIRAcetam 250MG TABLET (KEPPRA) PO SCH (09:28)
[2019-08-23] MEDS: FOLIC ACID 1 MG TAB PO SCH (09:28)
== END 2019-08-23 12:52 | disposition home or self-care (01) | DRG 560 ==
LOC: M LDI 20:46 → M OBS 08-21 22:14
PROVIDERS: ADMIT Advanced Practice Midwife; ATTEND Advanced Practice Midwife
PROC: 10E0XZZ Delivery of Products of Conception, External Approach (ICD-10-PCS; principal; 2019-08-21)
PROC: 3E0P7GC Introduction of Other Therapeutic Substance into Female Reproductive, Via Natural or Artificial Opening (ICD-10-PCS; 2019-08-21)
PROC: 10907ZC Drainage of Amniotic Fluid, Therapeutic from Products of Conception, Via Natural or Artificial Opening (ICD-10-PCS; 2019-08-21)
PROC: 0HQ9XZZ Repair Perineum Skin, External Approach (ICD-10-PCS; 2019-08-21)
DX: O41.03X0 Oligohydramnios, third trimester, not applicable or unspecified (principal); Z3A.39 39 weeks gestation of pregnancy; Z37.0 Single live birth; O99.354 Diseases of the nervous system complicating childbirth; G40.909 Epilepsy, unspecified, not intractable, without status epilepticus; O99.824 Streptococcus B carrier state complicating childbirth; O70.0 First degree perineal laceration during delivery

== ENCOUNTER → 2020-08-13 | Outpatient (REF) | payer OTHER ==
[2020-08-13 20:48] LABS: CHLAMYDIA DNA AMPLIFICATION NEGATIVE (NEGATIVE); GC DNA AMPLIFICATION NEGATIVE (NEGATIVE)
== END ==
LOC: M SFHCWAGY 16:47
PROVIDERS: ATTEND Nurse Practitioner Family
DX: Z12.4 Encounter for screening for malignant neoplasm of cervix (principal); Z01.419 Encounter for gynecological examination (general) (routine) without abnormal findings; Z11.3 Encounter for screening for infections with a predominantly sexual mode of transmission

== ENCOUNTER → 2021-06-06 | Outpatient (REF) | payer OTHER ==
[~2021-06-06] MED LIST changes: +ZOFR4TAB16 PO
== END ==
LOC: M LAB REF 18:50
PROVIDERS: ATTEND Physician Assistant Medical
DX: R50.9 Fever, unspecified (principal)

== ENCOUNTER 2021-06-07 04:21 | Emergency (ER) | payer OTHER ==
[~2021-06-07] VITALS: Ht 162.6 cm; Wt 64.1 kg
[~2021-06-07 04:21] MED LIST changes: -ZOFR4TAB16 PO
--- OUTSIDE RECORDS SUMMARY | 2021-06-07 04:30 | CCD ---
Author Author [facility] Organization [facility] Address Unknown Phone Unavailable Support Name Relationship Address Phone Jovan Alexandrenes Next Of Kin Unknown Unavailable Denny MARKP, Jelly Next Of Kin [address] [place] [address] Franklin BRAVO, Julian Next Of Kin [address] [place] [address] CASIE PETTIT [place], [place] [address] JOVAN DYSON Next Of Kin [address] [place] [address] Geovanny BRAVO, Stewart Next Of Kin [address] [place] [address] Carmen OPTICAL SCIENTIST-C, Carmen Next Of Kin [address] [place], [place] [id number] Mikey MARKP, Kandis Next Of Kin [address] [place] [address] Reyna SCHUMACHER, Tarsha Next Of Kin [address] [place] [address] Dilthierno DDS, Susana Next Of Kin [address] [place], [place] [phone] [employer] Next Of Kin [address] [place] [address] [employer] [address] [employer] Next Of Kin [address] [place] [address] UE Next Of Kin Unknown Unavailable Dille DDS, Susana Next Of Kin [address] [place] [address] ST Next Of Kin Unknown Unavailable KAUSHAL MARTÍNEZ Next Of Kin [address] [facility] [place] [address] JOVAN DYSON ECON [address] [place] [address] Unavailable Care Team Providers Care Cane Loader Name Role Phone LETTIERE, A DEAN PA Unavailable Unavailable LETTIERE, A DEAN PA Unavailable Unavailable LETTIERE, A DEAN PA Unavailable Unavailable LETTIERE, A DEAN PA Unavailable Unavailable LETTIERE, A DEAN PA Unavailable Unavailable LETTIERE, A DEAN PA Unavailable Unavailable LETTIERE, A DEAN PA Unavailable Unavailable LETTIERE, A DEAN PA Unavailable Unavailable LETTIERE, A DEAN PA Unavailable Unavailable LETTIERE, A DEAN PA Unavailable Unavailable LETTIERE, A DEAN PA Unavailable Unavailable LETTIERE, A DEAN PA Unavailable Unavailable LETTIERE, A DEAN PA Unavailable Unavailable LETTIERE, A DEAN PA Unavailable Unavailable LETTIERE, A DEAN PA Unavailable Unavailable LETTIERE, A DEAN PA Unavailable Unavailable LETTIERE, A DEAN PA Unavailable Unavailable LETTIERE, A DEAN PA Unavailable Unavailable LETTIERE, A DEAN PA Unavailable Unavailable LETTIERE, A DEAN PA Unavailable Unavailable LETTIERE, A DEAN PA Unavailable Unavailable LETTIERE, A DEAN PA Unavailable Unavailable LETTIERE, A DEAN PA Unavailable Unavailable LETTIERE, A DEAN PA Unavailable Unavailable LETTIERE, A DEAN PA Unavailable Unavailable LETTIERE, A DEAN PA Unavailable Unavailable LETTIERE, A DEAN PA Unavailable Unavailable LETTIERE, A DEAN PA Unavailable Unavailable LETTIERE, A DEAN PA Unavailable Unavailable LETTIERE, A DEAN PA Unavailable Unavailable LETTIERE, A DEAN PA Unavailable Unavailable Feola, T Jenniffer PA Unavailable Unavailable Feola, T Jenniffer PA Unavailable Unavailable Feola, T Jenniffer PA Unavailable Unavailable Feola, T Jenniffer PA Unavailable Unavailable Feola, T Jenniffer PA Unavailable Unavailable Feola, T Jenniffer PA Unavailable Unavailable Feola, T Jenniffer PA Unavailable Unavailable Feola, T Jenniffer PA Unavailable Unavailable Feola, T Jenniffer PA Unavailable Unavailable Feola, T Jenniffer PA Unavailable Unavailable Feola, T Jenniffer PA Unavailable Unavailable Feola, T Jenniffer PA Unavailable Unavailable Feola, T Jenniffer PA Unavailable Unavailable Feola, T Jenniffer PA Unavailable Unavailable Feola, T Jenniffer PA Unavailable Unavailable Feola, T Jenniffer PA Unavailable Unavailable Feola, T Jenniffer PA Unavailable Unavailable Feola, T Jenniffer PA Unavailable Unavailable Feola, T Jenniffer PA Unavailable Unavailable Feola, T Jenniffer PA Unavailable Unavailable Feola, T Jenniffer PA Unavailable Unavailable Feola, T Jenniffer PA Unavailable Unavailable Feola, T Jenniffer PA Unavailable Unavailable Feola, T Jenniffer PA Unavailable Unavailable Feola, T Jenniffer PA Unavailable Unavailable Feola, T Jenniffer PA Unavailable Unavailable Feola, T Jenniffer PA Unavailable Unavailable Feola, T Jenniffer PA Unavailable Unavailable Feola, T Jenniffer PA Unavailable Unavailable Feola, T Jenniffer PA Unavailable Unavailable Feola, T Jenniffer PA Unavailable Unavailable Feola, T Jenniffer PA Unavailable Unavailable Feola, T Jenniffer PA Unavailable Unavailable Feola, T Jenniffer PA Unavailable Unavailable Feola, T Jenniffer PA Unavailable Unavailable Feola, T Jenniffer PA Unavailable Unavailable Feola, T Jenniffer PA Unavailable Unavailable Feola, T Jenniffer PA Unavailable Unavailable Feola, T Jenniffer PA Unavailable Unavailable Feola, T Jenniffer PA Unavailable Unavailable Feola, T Jenniffer PA Unavailable Unavailable Re-disclosure Warning The records that you are about to access may contain information from federally-assisted alcohol or drug abuse programs. If such information is present, then the following federally mandated warning applies: This information has been disclosed to you from records protected by federal confidentiality rules (42 CFR part 2). The federal rules prohibit you from making any further disclosure of this information unless further disclosure is expressly permitted by the written consent of the person to whom it pertains or as otherwise permitted by 42 CFR part 2. A general authorization for the release of medical or other information is NOT sufficient for this purpose. The Federal rules restrict any use of the information to criminally investigate or prosecute any alcohol or drug abuse patient.The records that you are about to access may contain highly sensitive health information, the redisclosure of which is protected by Article 27-F of the [facility] Public Health law. If you continue you may have access to information: Regarding HIV / AIDS; Provided by facilities licensed or operated by the [facility] Office of Mental Health; or Provided by the [facility] Office for People With Developmental Disabilities. If such information is present, then the following [facility] mandated warning applies: This information has been disclosed to you from confidential records which are protected by state law. State law prohibits you from making any further disclosure of this information without the specific written consent of the person to whom it pertains, or as otherwise permitted by law. Any unauthorized further disclosure in violation of state law may result in a fine or correction sentence or both. A general authorization for the release of medical or other information is NOT sufficient authorization for further disc losure. Family History Family Member Name Family Member Gender Family Member Status Date o f Status Description Data Source(s) Unknown Male Problem MEDENT ([facility]) Encounters Encounter Providers Location Date Indications Data Source(s ) Outpatient Attender: Jenniffer EVANS 021 01:42:20 PM EDT - 10/08/2020 03:17:25 PM EDT [facility] ([facility] ) Outpatient 09/05/2020 06:25:18 PM EST [facility] ([facility]) Outpatient Attender: DEAN Jones avi 09/05/2020 04:45:00 PM EST [facility] ([facility]) Unknown [address] [id number] 08/14/2020 12:00:00 AM EST eCW1 ([facility]) Outpatient [address] [id number] 08/13/2020 12:00:00 AM EST eCW1 ([facility]) Unknown [address] [facility] [address] [address] 06/12/2020 12:00:00 AM EST eCW1 ([facility]) Unknown [address] [facility] [address] [address] 04/09/2020 12:00:00 AM EDT eCW1 ([facility]) Medications Medication Brand Name Start Date Product Form Dose Route Admi nistrative Instructions Pharmacy Instructions Status Indications Reaction Description Data Source(s) 168 HR Ethinyl Estradiol 0.94664 MG/HR / norelgestromin 0.11581 MG/HR Transdermal System [Xulane] 150-35 mcg/24 hr NORELGESTROMIN/ETHIN.ESTRADIOL 11/14/2020 12:00:00 AM EDT patch weekly 3 APPLY 1 PATCH TO SKIN ON THE SAME DAY EVERY WEEK FOR 3 WEEKS, THEN OFF 1 WEEK APPLY 1 PATCH TO SKIN ON THE SAME DAY EVERY WEEK FOR 3 WEEKS, THEN OFF 1 WEEK SOLD: 11/14/2020 [facility] NITROFURANTOIN, MACROCRYSTALS 25 MG / Ni trofurantoin, Monohydrate 75 MG Oral Capsule 100 mg NITROFURANTOIN MONOHYD/M-CRYST 10/08/2020 12:00:00 AM EDT ca psule 20 TAKE ONE CAPSULE BY MOUTH TWICE A DAY FOR 10 DAYS TAKE ONE CAPSULE BY MOUTH TWICE A DAY FOR 10 DAYS SOLD: 10/24/2020 [facility] 150 mg 10/08/2020 12:00:00 AM EDT tablet 1 TAKE ONE TABLET BY MOUTH ONCE TAKE ONE TABLET BY MOUTH ONCE SOLD: 10/24/2020 [facility] Cyclobenzaprine hydrochloride 10 MG Oral Tablet CYCLOBENZAPR INE HCL 09/06/2020 12:00:00 AM EST tablet 14 TAKE ONE TABLET BY MOUTH AT BEDTIME TAKE ONE TABLET BY MOUTH AT BEDTIME SOLD: 09/24/2020 [facility] Cyclobenzaprine hydrochloride 10 MG Oral Tablet Cyclobenzapr ine HCL 09/05/2020 12:00:00 AM EST active M EDENT ([facility]) No Active Medications 09/05/2020 12:00:00 AM EST completed MEDENT ([facility]) 150-35 mcg/24 hr 08/23/2020 12:00:00 AM EST patch weekly 3 APPLY 1 PATCH TO SKIN ON THE SAME DAY EVERY WEEK FOR 3 WEEKS, THEN OFF 1 WEEK APPLY 1 PATCH TO SKIN ON THE SAME DAY EVERY WEEK FOR 3 WEEKS, THEN OFF 1 WEEK SOLD: 08/28/2020 [facility] 150-35 mcg/24 hr 08/23/2020 12:00:00 AM EST patch weekly 3 APPLY 1 PATCH TO SKIN ON THE SAME DAY EVERY WEEK FOR 3 WEEKS, THEN OFF 1 WEEK APPLY 1 PATCH TO SKIN ON THE SAME DAY EVERY WEEK FOR 3 WEEKS, THEN OFF 1 WEEK SOLD: 12/08/2020 [facility] 168 HR Ethinyl Estradiol 0.28421 MG/HR / norelgestromin 0.61836 MG/HR Transdermal System [Xulane] 150-35 mcg/24 hr NORELGESTROMIN/ETHIN.ESTRADIOL 08/23/2020 12:00:00 AM EST patch weekly 3 APPLY 1 PATCH TO SKIN ON THE SAME DAY EVERY WEEK FOR 3 WEEKS, THEN OFF 1 WEEK APPLY 1 PATCH TO SKIN ON THE SAME DAY EVERY WEEK FOR 3 WEEKS, THEN OFF 1 WEEK SOLD: 10/24/2020 [facility] 150-35 mcg/24 hr 08/23/2020 12:00:00 AM EST patch weekly 3 APPLY 1 PATCH TO SKIN ON THE SAME DAY EVERY WEEK FOR 3 WEEKS, THEN OFF 1 WEEK APPLY 1 PATCH TO SKIN ON THE SAME DAY EVERY WEEK FOR 3 WEEKS, THEN OFF 1 WEEK SOLD: 09/26/2020 [facility] 168 HR Ethinyl Estradiol 0.45454 MG/HR / norelgestromin 0.92890 MG/HR Transdermal Patch [Xulane] Xulane 150-35 MCG/24HR Xulane 150-35 MCG/24HR 08/13/2020 12:00:00 AM EST active Xulane 150-35 MCG/24HR eCW1 ([facility]) 168 HR Ethinyl Estradiol 0.74278 MG/HR / norelgestromin 0.18180 MG/HR Transdermal Patch [Xulane] Xulane 150-35 MCG/24HR Xulane 150-35 MCG/24HR 08/13/2020 12:00:00 AM EST active Xulane 150-35 MCG/24HR eCW1 ([facility]) Setlakin 91 Day Pack 0.15 mg-30 mcg (91) LEVONORGESTREL/ETHI NYL ESTRADIOL 06/14/2020 12:00:00 AM EST tablets,dose pack,3 month 91 TAKE ONE TABLET BY MOUTH EVERY DAY TAKE ONE TABLET BY MOUTH EVERY DAY SOLD: 06/14/2020 [facility] 1.5 mg 04/06/2020 12:00:00 AM EDT tablet 1 TAKE DIRECTED TAKE DIRECTED SOLD: 04/06/2020 [facility] Insurance Providers Payer name Policy type / Coverage type Policy ID Covered constitution party ID Covered constitution party's relationship to bailey Policy Bailey Plan Information Medicaid [place] Medigap Part B [id number] Family Dependent [id number] [facility] Health Maintenance Organization (HMO) [id number] Self [id number] [facility] Health Maintenance Organization (HMO) [id number] Self [id number] Medicaid S [id number] S [id number] Managed Care - Community Plan [facility] P [id number] S [id number] Medicaid S [id number] S [id number] Managed Care - Community Plan [facility] P [id number] S [id number] Medicaid P [id number] S [id number] MVP Medicaid Commercial [id number] Self [id number] [facility] Medicaid Commercial [id number] Self [id number] [facility] Medicaid Commercial [id number] Self [id number] P Medicaid Commercial [id number] Self [id number] [facility] Medicaid Commercial [id number] Self [id number] P Medicaid Commercial [id number] Self [id number] [facility] [id number] SP [id number] Managed Care - P P [id number] S [id number] [facility] [id number] SP [id number] [facility] [id number] SP [id number] Medicaid S [id number] S [id number] Medicaid S [id number] S [id number] D [facility] [id number] S [id number] [facility] Health Care Commercial Insurance Co. [id number] Self [id number] [facility] Medicaid Health Maintenance Organization ([facility]) [id number] Self [id number] [facility] [id number] SP [id number] [facility] Commercial [id number] Self [id number] ANSI-Not a Secondary Insurance [id number] ANSI-Not a Secondary Insurance [id number] SELF PAY O UNAVAILABLE [id number] S UNAVAILA BLE SELF PAY O [id number] S [id number] [facility] [id number] SP [id number] Self Pay P UNAVAILABLE S UNAVAILA BLE BCBS [facility] [id number] SP [id number] [facility] HEALTH CARE O [id number] S [id number] [facility] Commercial [id number] Self [id number] MEDICAID [id number] SP [id number] O BLUE [id number] SP [id number] Medicaid Dental P [id number] S [id number] [facility] Commercial [id number] Self [facility] [place] Health Maintenance Organization (HMO) [id number] Self [facility] COMMUNITY PLAN [place] [id number] SP [id number] [facility] Health Maintenance Organization (HMO) [id number] Self [id number] [facility] Health Maintenance Organization (HMO) [id number] Self [id number] BLUE CROSS RAWLS PLAN [id number] SP [id number] UN COMMUNITY PLAN MCDO [id number] SP [id number] [facility] O [id number] S [id number] SELF PAY ONLY [id number] SP [id number] Medicaid [place] Medicaid [id number] Self [id number] MEDICAID M [id number] S [id number] MEDICAID [id number] SP [id number] MVP Commercial [id number] Self [id number] MVP Medicaid Health Maintenance Organization (HMO) [id number] 0 [id number] Self [id number] [facility] [id number] SP [id number] MVP Medicaid Health Maintenance Organization (HMO) [id number] 0 [id number] Self [id number] Problems, Conditions, and Diagnoses No Information Surgeries/Procedures No Information Results ID Date Data Source PAP REQUEST FOR SERVICE 08/13/2020 12:00:00 AM EST eCW1 ([facility]) Name Value Range Interpretation Code Description Data Bhumi rce(s) Supporting Document(s) eCW1 ([facility]) ID Date Data Source CHLAMYDIA, GC & TRICH AMP 08/13/2020 12:00:00 AM EST eCW1 ([facility]) Name Value Range Interpretation Code Description Data Bhumi rce(s) Supporting Document(s) NOT DETECTED NEGATIVE eCW1 ([facility]) Procedure Social History Code Duration Value Status Description Data Source(s ) Smoking 08/13/2020 12:00:00 AM EST Never Smoker completed Never S moker eCW1 ([facility]) Smoking 08/13/2020 12:00:00 AM EST Never Smoker completed Never S moker eCW1 ([facility]) Vital Signs ID Date Data Source UNK Name Value Range Interpretation Code Description Data Source(s) Systolic blood pressure 135 mm[Hg] 135 mm[Hg] M EDENT ([facility]) Body temperature 99.1 [degF] 99.1 [degF] MEDENT ([facility]) Body height 64 [in_i] 64 [in_i] [facility] 5'4" Body mass index (BMI) [Ratio] 24.5 kg/m2 24.5 k g/m2 MEDENT ([facility]) Body weight 143.00 [lb_av] 143.00 [lb_av] MEDEN T ([facility]) Diastolic blood pressure 87 mm[Hg] 87 mm[Hg] MEDENT ([facility]) Heart rate 94 /min 94 /min MEDENT ([facility]) Respiratory rate 12 /min 12 /min [facility] ( [facility]) Oxygen saturation in Arterial blood by Pulse oximetry 98 % 98 % [facility] Body weight 149 [lb_av] 149 [lb_av] eCW1 ([facility]) Body weight 67.59 kg 67.59 kg [facility] ([facility]) Body height 64 [in_i] 64 [in_i] eCW1 ([facility]) Body mass index (BMI) [Ratio] 25.57 kg/m2 25.57 kg/m2 eCW1 ([facility]) Systolic blood pressure 127 mm[Hg] 127 mm[Hg] e CW1 ([facility]) Diastolic blood pressure 93 mm[Hg] 93 mm[Hg] eCW1 ([facility]) Patient Treatment Plan of Care Planned Activity Planned Date Details Description Data Source (s) 168 HR Ethinyl Estradiol 0.98181 MG/HR / norelgestromin 0.89569 MG/HR Transdermal Patch [Xulane] 08/13/2020 12:00:00 AM EST eCW1 ([facility]) 168 HR Ethinyl Estradiol 0.19549 MG/HR / norelgestromin 0.55566 MG/HR Transdermal Patch [Xulane] 08/13/2020 12:00:00 AM EST eCW1 ([facility])
[2021-06-07] MEDS ORDERED: NS 1,000 ML IV ONE (04:50)
[2021-06-07] MEDS ORDERED: MORPHINE 2 MG/ML 1ML VIAL (J2270) IV ONE (04:50)
[2021-06-07] MEDS ORDERED: ONDANSETRON 4MG/2ML VIAL IV ONE (04:50)
[2021-06-07 05:22] LABS: BASO % 0.4 % (0.0-1.0); EOS % 0.2 % (0.0-3.0); HEMATOCRIT 40.2 % (36.0-47.0); HEMOGLOBIN 13.7 g/dl (12.0-15.5); LYMPH # 0.3 10^3/uL (1.5-5.0); LYMPH % 5.5 % (24.0-44.0); MEAN CORPUSCULAR HEMOGLOBIN 29.8 pg (27.0-33.0); MEAN CORPUSCULAR HGB CONC 34.1 g/dl (32.0-36.5); MEAN CORPUSCULAR VOLUME 87.4 fl (80.0-96.0); MONO # 0.8 10^3/uL (0.0-0.8); MONO % 17.2 % (2.0-8.0); NEUTROPHILS # 3.7 10^3/uL (1.5-8.5); NEUTROPHILS % 76.5 % (36.0-66.0); PLATELET COUNT, AUTOMATED 221 10^3/uL (150-450); WHITE BLOOD COUNT 4.8 10^3/uL (4.0-10.0)
--- OUTSIDE RECORDS SUMMARY | 2021-06-07 05:32 | CCD ---
Author Author [facility] Organization [facility] Address Unknown Phone Unavailable Support Name Relationship Address Phone Jovan Alexandrenes Next Of Kin Unknown Unavailable Denny MARKP, Jelly Next Of Kin [address] [place] [address] Franklin BRAVO, Julian Next Of Kin [address] [place] [address] [place] [address] JOVAN DYSON Next Of Kin [address] [place] [address] Geovanny BRAVO, Stewart Next Of Kin [address] [place] [address] Carmen [employer] REP-C, Carmen Next Of Kin [address] [place], [place] [id number] Mikey MARKP, Kandis Next Of Kin [address] [place] [address] Reyna SCHUMACHER, Tarsha Next Of Kin [address] [place] [address] Dilthierno DDS, Susana Next Of Kin [address] [place], [place] [id number] [employer] Next Of Kin [address] [place] [address] [place] [address] [employer] Next Of Kin [address] [place] [address] UE Next Of Kin Unknown Unavailable Dille DDS, Susana Next Of Kin [address] [place] [address] ST Next Of Kin Unknown Unavailable KAUSHAL MARTÍNEZ Next Of Kin [address] [facility] [place] [address] JOVAN DYSON ECON [address] [place] [address] Unavailable Care Team Providers Care Sock Turner Name Role Phone LETTIERE, A DEAN PA [...] is protected by Article 27-F of the [facility] Public Health law. If you continue you may have access to information: Regarding HIV / AIDS; Provided by facilities licensed or operated by the [facility] Office of Mental Health; or Provided by the [facility] Office for People With Developmental Disabilities. If such information is present, then the following [facility] mandated warning applies: This information has been [...] law may result in a fine or mcfp sentence or both. A general authorization for the release of medical or other information is NOT sufficient authorization for further disc losure. Family History Family Member Name Family Member Gender Family Member Status Date o f Status Description Data Source(s) Unknown Male Problem MEDENT ([facility]) Encounters Encounter Providers Location Date Indications Data Source(s ) Outpatient Attender: Jenniffer EVANS 021 01:42:20 PM EDT - 10/08/2020 03:17:25 PM EDT DocuTap ([facility] ) Outpatient 09/05/2020 06:25:18 PM EST [facility] ([facility]) Outpatient Attender: DEAN Jones avi 09/05/2020 04:45:00 PM EST MEDENT ([facility]) Unknown [address] [facility] [id number] 08/14/2020 12:00:00 AM EST eCW1 ([facility]) Outpatient [address] [facility] [id number] 08/13/2020 12:00:00 AM EST eCW1 ([facility]) Unknown [address] [facility] [place] [address] 06/12/2020 12:00:00 AM EST eCW1 ([facility]) Unknown [address] [facility] [place] [address] 04/09/2020 12:00:00 AM EDT eCW1 ([facility]) Medications Medication Brand Name Start Date Product Form Dose Route Admi nistrative Instructions Pharmacy Instructions Status Indications Reaction Description Data Source(s) 168 HR Ethinyl Estradiol 0.16808 MG/HR / norelgestromin 0.87333 MG/HR Transdermal System [Xulane] 150-35 mcg/24 hr [...] 09/05/2020 12:00:00 AM EST active M EDENT ([facility]) No Active Medications 09/05/2020 12:00:00 AM EST completed MEDENT ([facility]) 150-35 mcg/24 hr 08/23/2020 12:00:00 AM EST [...] 12/08/2020 [facility] 168 HR Ethinyl Estradiol 0.81014 MG/HR / norelgestromin 0.83030 MG/HR Transdermal System [Xulane] 150-35 mcg/24 hr [...] 09/26/2020 [facility] 168 HR Ethinyl Estradiol 0.95202 MG/HR / norelgestromin 0.80727 MG/HR Transdermal Patch [Xulane] Xulane 150-35 MCG/24HR Xulane 150-35 MCG/24HR 08/13/2020 12:00:00 AM EST active Xulane 150-35 MCG/24HR eCW1 ([facility]) 168 HR Ethinyl Estradiol 0.93325 MG/HR / norelgestromin 0.66246 MG/HR Transdermal Patch [Xulane] Xulane 150-35 MCG/24HR Xulane 150-35 MCG/24HR 08/13/2020 12:00:00 AM EST active Xulane 150-35 MCG/24HR eCW1 ([facility]) [place] 91 Day Pack 0.15 mg-30 mcg (91) LEVONORGESTREL/ETHI NYL ESTRADIOL 06/14/2020 12:00:00 AM EST tablets,dose pack,3 month 91 TAKE ONE TABLET BY MOUTH EVERY DAY TAKE ONE TABLET BY MOUTH EVERY DAY SOLD: 06/14/2020 [facility] Insurance Providers Payer name Policy type / Coverage type Policy ID Covered constitution party ID Covered constitution party's relationship to bailey Policy Bailey Plan Information Medicaid [facility] Part B [id number] Family Dependent [id number] [facility] Health Maintenance Organization [place] [id number] Self [id number] [facility] Health Maintenance Organization ([facility] [id number] Self [id number] Medicaid S [id number] S [id number] Managed Care - Community Plan [facility] P [id number] S [id number] Medicaid S [id number] S [id number] Managed Care - Community Plan [facility] P [id number] S [id number] Medicaid P [id number] S [id number] MVP Medicaid Commercial [id number] Self [id number] MVP Medicaid Commercial [id number] Self [id number] P Medicaid Commercial [id number] Self [id number] P Medicaid Commercial [id number] Self [id number] MVP Medicaid Commercial [id number] Self [id number] MVP Medicaid Commercial [id number] Self [id number] MVP MCDHMO [id number] SP [id number] Managed Care - MVP P [id number] S [id number] BEACON MVP DAGO [id number] SP [id number] MVP MCDHMO [id number] SP [id number] Medicaid S [id number] S [id number] Medicaid S [id number] S [id number] Managed Care [facility] P [id number] S [id number] MVP Health Care Commercial Insurance Co. [id number] Self [id number] MVP Medicaid Health Maintenance Organization (HMO) [id number] 0 [id number] Self [id number] [facility] [id number] SP [id number] [facility] Commercial [id number] Self [id number] ANSI-Not a Secondary Insurance [id number] ANSI-Not a Secondary Insurance [id number] SELF PAY O UNAVAILABLE [id number] S UNAVAILA BLE SELF PAY O [id number] S [id number] [facility] [id number] SP [id number] Self Pay P UNAVAILABLE S UNAVAILA BLE BCBS [facility] [id number] SP [id number] [facility] O [id number] S [id number] [facility] Commercial [id number] Self [id number] MEDICAID [id number] SP [id number] [facility] BLUE [id number] SP [id number] Medicaid Dental P [id number] S [id number] [facility] Commercial [id number] Self [facility] [place] Health Maintenance Organization (HMO) [id number] Self [facility], [facility]1983 COMMUNITY PLAN [facility] [id number] SP [id number] [facility] Health Maintenance Organization (HMO) [id number] Self [id number] [facility] Health Maintenance Organization (HMO) [id number] Self [id number] BLUE CROSS RAWLS PLAN [id number] SP [id number] [facility], [facility] COMMUNITY PLAN [facility] [id number] SP [id number] [facility] O [id number] S [id number] SELF PAY ONLY [id number] SP [id number] Medicaid [place] Medicaid [id number] Self [id number] MEDICAID M [id number] S [id number] MEDICAID [id number] SP [id number] [facility] Commercial [id number] Self [id number] MVP Medicaid Health Maintenance Organization (HMO) [id number] 0 [id number] Self [id number] [facility] [id number] SP [id number] MVP Medicaid Health Maintenance Organization (O) [id number] 0 [id number] Self [id number] Problems, Conditions, and Diagnoses No Information Surgeries/Procedures No Information Results ID Date Data Source PAP REQUEST FOR SERVICE 08/13/2020 12:00:00 AM EST eCW1 ([facility]) Name Value Range Interpretation Code Description Data Bhumi rce(s) Supporting Document(s) eCW1 ([facility]) ID Date Data Source CHLAMYDIA, GC & TRICH AMP 08/13/2020 12:00:00 AM EST eCW1 ([facility]) Name Value Range Interpretation Code Description Data Bhumi rce(s) Supporting Document(s) NOT DETECTED NEGATIVE eCW1 ([facility]) Procedure Social History Code Duration Value Status Description Data Source(s ) Smoking 08/13/2020 12:00:00 AM EST Never Smoker completed Never S moker eCW1 ([facility]) Smoking 08/13/2020 12:00:00 AM EST Never Smoker completed Never S moker eCW1 ([facility]) Vital Signs ID Date Data Source UNK Name Value Range Interpretation Code Description Data Source(s) Body height 64 [in_i] 64 [in_i] MEDENT ([facility]) 5'4" Body temperature 99.1 [degF] 99.1 [degF] MEDENT ([facility]) Systolic blood pressure 135 mm[Hg] 135 mm[Hg] M EDENT ([facility]) Body mass index (BMI) [Ratio] 24.5 kg/m2 24.5 k g/m2 MEDENT ([facility]) Diastolic blood pressure 87 mm[Hg] 87 mm[Hg] MEDENT ([facility]) Heart rate 94 /min 94 /min MEDENT ([facility]) Respiratory rate 12 /min 12 /min [facility] ( [facility]) Oxygen saturation in Arterial blood by Pulse oximetry 98 % 98 % MEDENT ([facility]) Body weight 143.00 [lb_av] 143.00 [lb_av] MEDEN T ([facility]) Body weight 149 [lb_av] 149 [lb_av] eCW1 ([facility]) Body weight 67.59 kg 67.59 kg [facility] ([facility]) Body height 64 [in_i] 64 [in_i] W1 ([facility]) Body mass index (BMI) [Ratio] 25.57 kg/m2 25.57 kg/m2 [facility] ([facility]) Systolic blood pressure 127 mm[Hg] 127 mm[Hg] e CW1 ([facility]) Diastolic blood pressure 93 mm[Hg] 93 mm[Hg] eCW1 ([facility]) Patient Treatment Plan of Care Planned Activity Planned Date Details Description Data Source (s) 168 HR Ethinyl Estradiol 0.08626 MG/HR / norelgestromin 0.60264 MG/HR Transdermal Patch [Xulane] 08/13/2020 12:00:00 AM EST eCW1 ([facility]) 168 HR Ethinyl Estradiol 0.24571 MG/HR / norelgestromin 0.50876 MG/HR Transdermal Patch [Bong] 08/13/2020 12:00:00 AM EST eCW1 ([facility])
[2021-06-07 05:42] LABS: ALBUMIN 3.9 GM/DL (3.2-5.2); ALT/SGPT 24 U/L (12-78); BILIRUBIN,TOTAL 0.4 MG/DL (0.2-1.0); BLOOD UREA NITROGEN 8 MG/DL (7-18); CALCIUM LEVEL 8.7 MG/DL (8.5-10.1); CARBON DIOXIDE LEVEL 21 MEQ/L (21-32); CHLORIDE LEVEL 110 MEQ/L (98-107); CREATININE FOR GFR 0.98 MG/DL (0.55-1.30); GLOMERULAR FILTRATION RATE > 60.0 (>60); GLUCOSE, FASTING 100 MG/DL (70-100); LIPASE 129 U/L (73-393); POTASSIUM SERUM 3.7 MEQ/L (3.5-5.1); SODIUM LEVEL 139 MEQ/L (136-145); TOTAL PROTEIN 7.4 GM/DL (6.4-8.2)
--- NOTE | 2021-06-07 06:12 | REPVR ---
PROCEDURE INFORMATION: Exam: CT Abdomen And Pelvis Without Contrast Exam date and time: 06/07/2021 5:10 AM Age: 20 years old Clinical indication: Abdominal pain; Localized; Right; Additional info: Right CVA and rlq tenderness with n, diarrhea TECHNIQUE: Imaging protocol: Computed tomography of the abdomen and pelvis without contrast. Radiation optimization: All CT scans at this facility use at least one of these dose optimization techniques: automated exposure control; mA and/or kV adjustment per patient size (includes targeted exams where dose is matched to clinical indication); or iterative reconstruction. COMPARISON: CT ABD/PEL W/IV CONTRAST ONLY 11/01/2018 6:29 PM FINDINGS: Liver: Normal. No mass. Gallbladder and bile ducts: Normal. No calcified stones. No ductal dilation. Pancreas: Normal. No ductal dilation. Spleen: Normal. No splenomegaly. Adrenal glands: Normal. No mass. Kidneys and ureters: Normal. No hydronephrosis. Stomach and bowel: Unremarkable. No obstruction. No mucosal thickening. Appendix: No evidence of appendicitis. Intraperitoneal space: There is a small free pelvic fluid. There is nonspecific mild diffuse mesenteric haziness. Vasculature: Unremarkable. No abdominal aortic aneurysm. Lymph nodes: Unremarkable. No enlarged lymph nodes. Urinary bladder: Unremarkable as visualized. Reproductive: Unremarkable as visualized. Bones/joints: Unremarkable. No acute fracture. Soft tissues: Unremarkable. IMPRESSION: 1. No CT evidence of acute appendicitis. 2. No nephrolithiasis or hydronephrosis. 3. Nonspecific mild diffuse mesenteric haziness likely mild edema reactive to an inflammatory or infectious process such as enteritis. Correlate clinically. 4. Small amount of free pelvic fluid could be physiologic or reactive. Electronically signed by: Jim Mars On 06/07/2021 06:12:34 AM
[2021-06-07] MEDS ORDERED: ZOFR4TAB16 PO (06:19)
[2021-06-07] MEDS ORDERED: IBUP-1022 PO (06:31)
[2021-06-07 06:33] VITALS: BP 128/88
--- NOTE | 2021-06-07 07:40 | ED PDOC ---
Post-Departure Follow-Up radiology report faxed to Siria Linder MD Jun 07, 2021 07:40
== END 2021-06-07 06:34 | disposition home or self-care (01) ==
LOC: M ED 04:21
DX: K52.9 Noninfective gastroenteritis and colitis, unspecified (principal); G40.909 Epilepsy, unspecified, not intractable, without status epilepticus; Z79.899 Other long term (current) drug therapy; Z88.7 Allergy status to serum and vaccine
CPT/HCPCS: 74176; 80053; 81001; 83605; 83690; 85025; 87040; 96361; 96374; 96375; 99284; J2270; J2405

== ENCOUNTER 2021-09-28 16:26 | Emergency (ER) | payer OTHER ==
[~2021-09-28] VITALS: Ht 162.6 cm; Wt 65.2 kg
[~2021-09-28 16:26] MED LIST changes: +OMEP-173 PO; -OMEP-218 PO; +ZOFR4TAB16 PO
[2021-09-28 19:33] VITALS: BP 124/76
[2021-09-28 19:42] LABS: BASO % 0.4 % (0.0-1.0); EOS # 0.1 10^3/uL (0.0-0.5); HEMATOCRIT 39.2 % (36.0-47.0); HEMOGLOBIN 13.6 g/dl (12.0-15.5); LYMPH # 2.1 10^3/uL (1.5-5.0); LYMPH % 22.1 % (24.0-44.0); MEAN CORPUSCULAR HEMOGLOBIN 30.6 pg (27.0-33.0); MEAN CORPUSCULAR HGB CONC 34.7 g/dl (32.0-36.5); MEAN CORPUSCULAR VOLUME 88.3 fl (80.0-96.0); MONO # 0.8 10^3/uL (0.0-0.8); MONO % 7.8 % (2.0-8.0); NEUTROPHILS # 6.6 10^3/uL (1.5-8.5); NEUTROPHILS % 68.3 % (36.0-66.0); PLATELET COUNT, AUTOMATED 263 10^3/uL (150-450); RED BLOOD COUNT 4.44 10^6/uL (4.00-5.40); WHITE BLOOD COUNT 9.6 10^3/uL (4.0-10.0)
[2021-09-28 20:22] LABS: BLOOD UREA NITROGEN 8 MG/DL (7-18); CARBON DIOXIDE LEVEL 25 MEQ/L (21-32); CHLORIDE LEVEL 108 MEQ/L (98-107); CREATININE FOR GFR 0.75 MG/DL (0.55-1.30); GLOMERULAR FILTRATION RATE > 60.0 (>60); GLUCOSE, FASTING 81 MG/DL (70-100); HCG, SERUM QUANTITATIVE 11069 MIU/ML; POTASSIUM SERUM 4.3 MEQ/L (3.5-5.1); SODIUM LEVEL 138 MEQ/L (136-145)
== END 2021-09-28 20:54 | disposition left against medical advice (07) ==
LOC: M ED 16:26
DX: R10.9 Unspecified abdominal pain (principal); I10 Essential (primary) hypertension; G40.909 Epilepsy, unspecified, not intractable, without status epilepticus; F41.9 Anxiety disorder, unspecified; Z88.7 Allergy status to serum and vaccine

== ENCOUNTER 2021-10-13 22:24 | Emergency (ER) | payer OTHER ==
[~2021-10-13] VITALS: Ht 162.6 cm; Wt 64.0 kg
[2021-10-13 22:25] VITALS: BP 142/88
== END 2021-10-13 23:47 | disposition left against medical advice (07) ==
LOC: M ED 22:24
DX: Z53.29 Procedure and treatment not carried out because of patient's decision for other reasons (principal)

== ENCOUNTER → 2021-10-28 | Outpatient (CLI) | payer OTHER ==
[2021-10-28 17:26] LABS: BASO % 0.3 % (0.0-1.0); EOS # 0.1 10^3/uL (0.0-0.5); EOS % 1.2 % (0.0-3.0); HEMATOCRIT 39.1 % (36.0-47.0); HEMOGLOBIN 13.3 g/dl (12.0-15.5); LYMPH # 2.1 10^3/uL (1.5-5.0); LYMPH % 22.2 % (24.0-44.0); MEAN CORPUSCULAR HEMOGLOBIN 30.5 pg (27.0-33.0); MEAN CORPUSCULAR VOLUME 89.7 fl (80.0-96.0); MONO # 0.7 10^3/uL (0.0-0.8); NEUTROPHILS # 6.3 10^3/uL (1.5-8.5); PLATELET COUNT, AUTOMATED 259 10^3/uL (150-450); RED BLOOD COUNT 4.36 10^6/uL (4.00-5.40); WHITE BLOOD COUNT 9.2 10^3/uL (4.0-10.0)
[2021-10-28 18:35] LABS: HEPATITIS C VIRUS ABY INDEX 0.1 INDEX (<0.8); HIV 1&2 SCREEN CENTAUR NEGATIVE (NEGATIVE)
[2021-10-28 19:08] LABS: GC DNA AMPLIFICATION NEGATIVE (NEGATIVE)
== END ==
LOC: M PLALAB 15:08
PROVIDERS: ATTEND Advanced Practice Midwife
DX: O99.351 Diseases of the nervous system complicating pregnancy, first trimester (principal)

== ENCOUNTER → 2021-10-30 | Outpatient (REF) | payer OTHER | LOC: M LAB REF 22:28 | PROVIDERS: ATTEND Physician Assistant | DX: J06.9 Acute upper respiratory infection, unspecified (principal) ==

== ENCOUNTER 2021-11-04 15:51 | Emergency (ER) | payer OTHER ==
[~2021-11-04] VITALS: Ht 162.6 cm; Wt 63.1 kg
[2021-11-04] MEDS ORDERED: DOXY1TAB59 (16:03)
[2021-11-04] MEDS ORDERED: FOLI1TAB11 (16:03)
[2021-11-04] MEDS ORDERED: METO10TA2 (16:03)
[2021-11-04] MEDS ORDERED: LEVE500T5 (16:03)
[2021-11-04] MEDS ORDERED: NS 1,000 ML IV ONE (17:40)
[2021-11-04 18:07] LABS: BASO % 0.1 % (0.0-1.0); EOS % 0.1 % (0.0-3.0); HEMATOCRIT 37.9 % (36.0-47.0); HEMOGLOBIN 13.4 g/dl (12.0-15.5); LYMPH % 12.4 % (24.0-44.0); MEAN CORPUSCULAR HEMOGLOBIN 30.7 pg (27.0-33.0); MEAN CORPUSCULAR HGB CONC 35.4 g/dl (32.0-36.5); MEAN CORPUSCULAR VOLUME 86.9 fl (80.0-96.0); MONO # 0.6 10^3/uL (0.0-0.8); MONO % 8.1 % (2.0-8.0); NEUTROPHILS # 6.3 10^3/uL (1.5-8.5); NEUTROPHILS % 78.9 % (36.0-66.0); PLATELET COUNT, AUTOMATED 204 10^3/uL (150-450); RED BLOOD COUNT 4.36 10^6/uL (4.00-5.40); WHITE BLOOD COUNT 7.9 10^3/uL (4.0-10.0)
[2021-11-04 18:35] VITALS: BP 122/77
[2021-11-04 18:38] LABS: BLOOD UREA NITROGEN 8 MG/DL (7-18); CALCIUM LEVEL 9.6 MG/DL (8.5-10.1); CARBON DIOXIDE LEVEL 25 MEQ/L (21-32); CHLORIDE LEVEL 105 MEQ/L (98-107); CREATININE FOR GFR 0.54 MG/DL (0.55-1.30); FREE T4 1.33 NG/DL (0.76-1.46); GLOMERULAR FILTRATION RATE > 60.0 (>60); GLUCOSE, FASTING 86 MG/DL (70-100); SODIUM LEVEL 137 MEQ/L (136-145); THYROID STIMULATING HORMONE 0.119 uIU/ML (0.358-3.740)
[2021-11-04] MEDS ORDERED: ONDA4TAB6 PO (19:56)
== END 2021-11-04 20:10 | disposition home or self-care (01) ==
LOC: M ED 15:51
DX: O21.0 Mild hyperemesis gravidarum (principal); R55 Syncope and collapse; O99.512 Diseases of the respiratory system complicating pregnancy, second trimester; J06.9 Acute upper respiratory infection, unspecified; Z88.7 Allergy status to serum and vaccine; Z3A.12 12 weeks gestation of pregnancy

== ENCOUNTER → 2021-11-05 | Outpatient (CLI) | payer OTHER ==
[~2021-11-05] MED LIST changes: +DOXY1TAB59; +METO10TA2
== END ==
LOC: M PLALAB 16:01
PROVIDERS: ATTEND Advanced Practice Midwife
DX: Z36.89 Encounter for other specified antenatal screening (principal); Z3A.10 10 weeks gestation of pregnancy

== ENCOUNTER → 2021-12-30 | Outpatient (CLI) | payer OTHER | LOC: M WHC 12:31 | PROVIDERS: ATTEND Obstetrics & Gynecology | DX: Z36.89 Encounter for other specified antenatal screening (principal); Z3A.19 19 weeks gestation of pregnancy ==

== ENCOUNTER → 2022-02-19 | Outpatient (CLI) | payer OTHER ==
[2022-02-19 13:56] LABS: HEMATOCRIT 36.7 % (36.0-47.0); HEMOGLOBIN 12.2 g/dl (12.0-15.5); MEAN CORPUSCULAR HEMOGLOBIN 30.6 pg (27.0-33.0); MEAN CORPUSCULAR HGB CONC 33.2 g/dl (32.0-36.5); PLATELET COUNT, AUTOMATED 302 10^3/uL (150-450); RED BLOOD COUNT 3.99 10^6/uL (4.00-5.40); WHITE BLOOD COUNT 10.7 10^3/uL (4.0-10.0)
[2022-02-19 15:32] LABS: GC DNA AMPLIFICATION NEGATIVE (NEGATIVE)
== END ==
LOC: M PLALAB 10:50
PROVIDERS: ATTEND Advanced Practice Midwife
DX: O99.352 Diseases of the nervous system complicating pregnancy, second trimester (principal)

== ENCOUNTER 2022-03-02 14:23 | Emergency (ER) | payer OTHER ==
[~2022-03-02] VITALS: Ht 162.6 cm; Wt 69.1 kg
[2022-03-02 14:33] VITALS: BP 124/72
[2022-03-02] MEDS ORDERED: ACETAMINOPHEN TAB 650MG DOSE (2X325MG) PO ONE (15:35)
== END 2022-03-02 16:16 | disposition home or self-care (01) ==
LOC: M ED 14:23
DX: S92.424A Nondisplaced fracture of distal phalanx of right great toe, initial encounter for closed fracture (principal); W22.8XXA Striking against or struck by other objects, initial encounter; Y92.018 Other place in single-family (private) house as the place of occurrence of the external cause; Z3A.28 28 weeks gestation of pregnancy; I10 Essential (primary) hypertension; Z88.7 Allergy status to serum and vaccine

== ENCOUNTER → 2022-04-16 | Outpatient (CLI) | payer OTHER | LOC: M WHC 10:57 | PROVIDERS: ATTEND Obstetrics & Gynecology | DX: O26.843 Uterine size-date discrepancy, third trimester (principal); Z3A.34 34 weeks gestation of pregnancy ==

== ENCOUNTER → 2022-04-22 | Outpatient (REF) | payer OTHER | LOC: M PLALAB 14:14 | PROVIDERS: ATTEND Advanced Practice Midwife | DX: O99.353 Diseases of the nervous system complicating pregnancy, third trimester (principal) ==

== ENCOUNTER → 2024-01-25 | Outpatient (REF) | payer OTHER ==
[~2024-01-25] MED LIST changes: +ONDA-282; +ONDA-282 PO; -ONDA4TAB6; -ONDA4TAB6 PO; +PRENTAB9 PO
[2024-01-25 18:39] LABS: BASO % 0.7 % (0.0-1.0); EOS # 0.1 10^3/uL (0.0-0.5); EOS % 2.5 % (0.0-3.0); HEMATOCRIT 41.5 % (36.0-47.0); HEMOGLOBIN 13.7 g/dl (12.0-15.5); LYMPH # 1.7 10^3/uL (1.5-5.0); LYMPH % 29.2 % (24.0-44.0); MEAN CORPUSCULAR HEMOGLOBIN 30.2 pg (27.0-33.0); MEAN CORPUSCULAR VOLUME 91.4 fl (80.0-96.0); MONO # 0.6 10^3/uL (0.0-0.8); MONO % 10.1 % (2.0-8.0); NEUTROPHILS # 3.3 10^3/uL (1.5-8.5); NEUTROPHILS % 57.5 % (36.0-66.0); PLATELET COUNT, AUTOMATED 226 10^3/uL (150-450); RED BLOOD COUNT 4.54 10^6/uL (4.00-5.40); WHITE BLOOD COUNT 5.7 10^3/uL (4.0-10.0)
[2024-01-25 19:13] LABS: ALBUMIN 4.3 G/DL (3.2-5.2); ALKALINE PHOSPHATASE 61 U/L (46-116); ALT/SGPT 13 U/L (7.0-40); AST/SGOT 8 U/L (<34); BILIRUBIN,TOTAL 0.8 MG/DL (0.3-1.2); BLOOD UREA NITROGEN 5 MG/DL (9-23); CALCIUM LEVEL 9.9 MG/DL (8.5-10.1); CARBON DIOXIDE LEVEL 29 MMOL/L (20-31); CHLORIDE LEVEL 105 MMOL/L (98-107); CREATININE FOR GFR 0.89 MG/DL (0.55-1.30); FREE T4 1.11 NG/DL (0.89-1.76); GLOMERULAR FILTRATION RATE > 60.0 (>60); GLUCOSE, FASTING 78 MG/DL (60-100); POTASSIUM SERUM 4.6 MMOL/L (3.5-5.1); SODIUM LEVEL 138 MMOL/L (136-145); THYROID STIMULATING HORMONE 0.564 uIU/ML (0.55-4.78); TOTAL PROTEIN 7.1 G/DL (5.7-8.2)
== END ==
LOC: M LAB REF 17:09
PROVIDERS: ATTEND Family Medicine Addiction Medicine
DX: R42 Dizziness and giddiness (principal)